=== PATIENT | female | born 1960 | race American Indian/Alaskan Native ===

== ENCOUNTER 2016-12-15 18:14 | Emergency (ER) | payer BC, MEDICARE ==
[2016-12-15 18:18] VITALS: BMI 37.8
[2016-12-15 18:26] VITALS: TEMP 98.6
[2016-12-15] MEDS ORDERED: Phenylephrine 0.5% Nasal Spray (15 ml) NS STA (18:56)
--- NOTE | 2016-12-15 18:59 | ED PDOC ---
Arrival/HPI - General Chief Complaint: ENT Problem Time Seen by Provider: 12/15/16 18:39 Historian: Patient - History of Present Illness Narrative History of Present Illness (Text): 12/15/16 18:56 A 56 year old female, whose past medical history includes borderline diabetes, asthma and PE in 2013 on Xarelto, presents to the emergency department complaining of a nose bleed in right naris that began at 17:30 today and resolved 10 minutes prior to arrival. Patient denies any fever, chills, nausea, vomiting, abdominal pain, hematouria, hematochezia, chest pain, shortness of breath, cough or any other complaints. Patient has a family history of blood clots. PMD: Dr. Small Time/Duration: Other (17:30 today) Symptom Course: Resolved (10 mins [employer]) Quality: Other Context: Other Past Medical History - Provider Review Nursing Documentation Reviewed: Yes - Infectious Disease Hx of Infectious Diseases: None - Tetanus Immunization Tetanus Immunization: Unknown - Cardiac Hx Hypertension: Yes - Pulmonary Hx Asthma: Yes Hx Pulmonary Embolism: Yes - Neurological Hx Headaches: Yes Hx Migraine: Yes - Endocrine/Metabolic Hx Endocrine Disorders: Yes (borderline DM) - Hematological/Oncological Hx Blood Disorders: Yes Other/Comment: Vitamin D deficiency - Musculoskeletal/Rheumatological Hx Musculoskeletal Disorders: Yes Hx Back Pain: Yes Hx Fractures: Yes Hx Herniated Disk: Yes (S1) Hx Unsteady Gait: No Other/Comment: fibromyalgia. calcified tendonitis hip. torus palatinus. left knee torn ACL - Gastrointestinal Hx Gastroesophageal Reflux: Yes - Genitourinary/Gynecological Hx Genitourinary Disorders: Yes Other/Comment: 3 miscarriages - Psychiatric Hx Substance Use: No - Surgical History Hx Appendectomy: Yes (2006) Hx Cholecystectomy: Yes (1991) Hx Hysterectomy: Yes (2005 Partial) Other/Comment: Left ACL repair. R knee arthroscopy - Anesthesia Hx Anesthesia: Yes Hx Anesthesia Reactions: No Hx Malignant Hyperthermia: No - Suicidal Assessment Feels Threatened In Home Enviroment: No Family/Social History - Physician Review Nursing Documentation Reviewed: Yes Family/Social History: Blood Clots Smoking Status: Never Smoked Hx Alcohol Use: No Hx Substance Use: No Hx Substance Use Treatment: No Allergies/Home Meds Allergies/Adverse Reactions: Allergies piperacillin [From Zosyn] Allergy (Verified 12/15/16 18:17) RASH tazobactam [From Zosyn] Allergy (Verified 12/15/16 18:17) RASH atorvastatin [From Lipitor] Adverse Reaction (Verified 12/15/16 18:17) PAIN muscle ache pravastatin [From Pravachol] Adverse Reaction (Verified 12/15/16 18:17) PAIN muscle pain rosuvastatin [From Crestor] Adverse Reaction (Verified 12/15/16 18:17) PAIN muscle pain Home Medications: Home Meds Medication Instructions Recorded Confirmed Metoprolol Succinate 25 mg PO DAILY 12/23/12 12/15/16 Ergocalciferol (Vitamin D2) 50,000 iu PO QWK 07/26/13 12/15/16 [Vitamin D] Tizanidine HCl [Tizanidine] 4 mg PO DAILY 04/13/14 12/15/16 Albuterol Sulfate [Proventil Hfa] 1 puff IH DAILY 12/15/16 12/15/16 Albuterol/Ipratropium [Duoneb 3 1 vial IH Q6H PRN 12/15/16 12/15/16 mg/0.5 mg (3 ml) UD] Desloratadine [Clarinex] 1 tab PO DAILY 12/15/16 12/15/16 Ezetimibe [Zetia] 1 tab PO DAILY 12/15/16 12/15/16 Fluticasone/Salmeterol 250/50 1 puff IH BID 12/15/16 12/15/16 [Advair Diskus 250/50] Gabapentin Enacarbil [Horizant] 1 cap PO BID 12/15/16 12/15/16 Hydrocodone Bitartrate [Zohydro ER] 1 cap PO BID 12/15/16 12/15/16 Lidocaine 5% [Lidoderm] 1 patch TOP DAILY 12/15/16 12/15/16 Montelukast [Singulair] 1 tab PO DAILY 12/15/16 12/15/16 Rivaroxaban [Xarelto] 1 tab PO DAILY 12/15/16 12/15/16 Review of Systems - Physician Review All systems were reviewed & negative as marked: Yes - Review of Systems Constitutional: absent: Fevers, Night Sweats ENT: Epistaxis (in right nare) Respiratory: absent: SOB, Cough Cardiovascular: absent: Chest Pain Gastrointestinal: absent: Abdominal Pain, Nausea, Vomiting, Hematochezia Genitourinary Female: absent: Hematuria Physical Exam Vital Signs Reviewed: Yes Vital Signs Temp Pulse Resp BP Pulse Ox 12/15/16 19:45 67 16 141/70 100 12/15/16 18:20 98.6 F 76 18 138/78 95 Temperature: Afebrile Blood Pressure: Normal Pulse: Regular Respiratory Rate: Normal Appearance: Positive for: Well-Appearing, Non-Toxic, Comfortable Pain Distress: None Mental Status: Positive for: Alert and Oriented X 3 - Systems Exam Head: Present: Atraumatic, Normocephalic Pupils: Present: PERRL Conjunctiva: Present: Normal Mouth: Present: Moist Mucous Membranes Pharnyx: No: ERYTHEMA, EXUDATE, TONSILS ENLARGED Nose (External): Present: Atraumatic Nose (Internal): Present: Normal Inspection, Other (There is some blood present in the right nare but no active bleeding) Neurological: Present: GCS=15, CN II-XII Intact, Speech Normal Skin: Present: Warm, Dry, Normal Color. No: Rashes Psychiatric: Present: Alert, Oriented x 3, Normal Insight, Normal Concentration Medical Decision Making ED Course and Treatment: 12/15/16 18:56 Impression: A 56 year old female with epistaxis in right naris, which resolved. Patient is maintained on xarelto for a history of PE. Plan: -- Labs -- Mendel-Synephrine nasal spray -- Reassess and disposition Progress Notes: 12/15/16 20:45 H/H and coags are stable and patient is well-appearing. Patient on initial exam with blood present but no active fresh hemorrhaging. Neosynephrine placed in the nares. Repeat exam showing near resolution of all blood. Given xarelto , discussed with Dr. Daigle, who said to hold the xarelto till she sees her early next week. - Lab Interpretations Lab Results: 12/15/16 19:00 Lab Results 12/15/16 19:00: PT 10.3, INR 0.95, APTT 27.7 12/15/16 19:00: WBC 9.1, RBC 4.12, Hgb 12.6, Hct 38.0, MCV 92.2, MCH 30.6, MCHC 33.2, RDW 14.9 H, Plt Count 376, MPV 9.1, Gran % 59.3, Lymph % (Auto) 33.6, [place] % (Auto) 5.6, Eos % (Auto) 1.2 L, Baso % (Auto) 0.3, Gran # 5.38, Lymph # 3.1, [place]well # 0.5, Eos # 0.1, Baso # 0.03 I have reviewed the lab results: Yes - Medication Orders Current Medication Orders: Discontinued Medications Phenylephrine HCl (Mendel-Synephrine 0.5% Nasal [place]) 1 ml NS STAT STA Stop: 12/15/16 18:57 Last Admin: 12/15/16 19:49 Dose: 1 ml Comments: Given by ED MD - Scribe Statement The provider has reviewed the documentation as recorded by the Perez Siu Provider Scribe Attestation: All medical record entries made by the Scribe were at my direction and personally dictated by me. I have reviewed the chart and agree that the record accurately reflects my personal performance of the history, physical exam, medical decision making, and the department course for this patient. I have also personally directed, reviewed, and agree with the discharge instructions and disposition. Disposition/Present on Arrival - Present on Arrival Any Indicators Present on Arrival: Yes History of DVT/PE: Yes History of Uncontrolled Diabetes: No Urinary Catheter: No History of Decub. Ulcer: No History Surgical Site Infection Following: None - Disposition Have Diagnosis and Disposition been Completed?: Yes Diagnosis: Epistaxis Disposition: HOME/ ROUTINE Disposition Time: 20:45 Patient Plan: Discharge Condition: GOOD Discharge Instructions (ExitCare): Nosebleed (ED) Additional Instructions: Hold the xarelto till you see Dr. Daigle early next week. Follow up with Dr. Ware, ENT if any recurrence of bleeding. Return to the emergency department if any new concerning symptoms. Referrals: Davion Small MD [Primary Care Provider] - Follow up with primary Galindo Daigle MD [Staff Provider] - Follow up with primary Joel Ware DO [Staff Provider] - Follow up with primary Forms: [employer] ([place])
[2016-12-15 19:25] LABS: BASO # 0.03 K/mm3 (0.0-2.0); BASO % 0.3 % (0.0-3.0); EOS # 0.1 (0.0-0.7); EOS % 1.2 % (1.5-5.0); GRAN # 5.38 (1.4-6.5); GRAN % 59.3 % (50.0-68.0); LYMPH # 3.1 (1.2-3.4); LYMPH % 33.6 % (22.0-35.0); MEAN CELL VOLUME 92.2 fl (80.0-105.0); MEAN CORPUSCULAR HEMOGLOBIN 30.6 pg (25.0-35.0); MEAN CORPUSCULAR HGB CONC 33.2 g/dl (31.0-37.0); MEAN PLATELET VOLUME 9.1 fl (7.0-11.0); MONO # 0.5 (0.1-0.6); MONO % 5.6 % (1.0-6.0); RED CELL DISTRIBUTION WIDTH 14.9 % (11.5-14.5); WHITE BLOOD COUNT 9.1 10^3/ul (4.5-11.0)
[2016-12-15 19:32] LABS: INR 0.95 (0.93-1.08); PARTIAL THROMBOPLASTIN TIME 27.7 Seconds (23.7-30.8)
[2016-12-15 19:45] VITALS: RESP 16
[2016-12-15 21:15] VITALS: BP 131/64; PULSE 77; O2SAT 96
== END 2016-12-15 21:16 | disposition home or self-care (01) ==
LOC: ED 18:14
DX: R04.0 Epistaxis (principal); I10 Essential (primary) hypertension; Z86.711 Personal history of pulmonary embolism; Z79.01 Long term (current) use of anticoagulants

== ENCOUNTER 2017-09-11 10:56 | Emergency (ER) | payer MEDICARE ==
[2017-09-11 10:58] VITALS: BMI 36.3
[2017-09-11 11:03] VITALS: TEMP 99
[2017-09-11] MEDS ORDERED: Sodium Chloride 0.9% 1,000 ML IV STA (11:13)
[2017-09-11] MEDS ORDERED: Oxycodone/Acetaminophen 5/325 mg Tab PO STA ×2 (11:15→14:39)
--- NOTE | 2017-09-11 11:19 | ED PDOC ---
Arrival/HPI - General Chief Complaint: Abdominal Pain Time Seen by Provider: 09/11/17 11:05 Historian: Patient, Spouse - History of Present Illness Narrative History of Present Illness (Text): you were treated in the ED today for hx of pulmonary embolism and on xeralto, having left sided flank pain with blood in urine but otherwise without any fall/ injury/neck pain/loss of consciousness/nausea/vomiting/headache/dizziness/ difficulty breathing/chest pain/abdomen pain/numbness/tingling/loss of limb or bowel or bladder function/pain with urination. Time/Duration: 24 hours Symptom Onset: Gradual Symptom Course: Unchanged Quality: Aching Severity Level: 6 Activities at Onset: Rest Context: Sitting Past Medical History - Provider Review Nursing Documentation Reviewed: Yes - Travel History Have you recently traveled outside [place] w/in the past 3 mons?: No - Infectious Disease Hx of Infectious Diseases: None - Tetanus Immunization Tetanus Immunization: Unknown - Reproductive Menopause: Yes - Cardiac Hx Hypertension: Yes - Pulmonary Hx Asthma: Yes Hx Pulmonary Embolism: Yes - Neurological Hx Headaches: Yes Hx Migraine: Yes - Endocrine/Metabolic Hx Endocrine Disorders: Yes (borderline DM) Hx Diabetes Mellitus Type 2: Yes - Hematological/Oncological Hx Blood Disorders: Yes Other/Comment: Vitamin D deficiency - Musculoskeletal/Rheumatological Hx Musculoskeletal Disorders: Yes Hx Back Pain: Yes Hx Fractures: Yes Hx Herniated Disk: Yes (S1) Hx Unsteady Gait: No Other/Comment: fibromyalgia. calcified tendonitis hip. torus palatinus. left knee torn ACL - Gastrointestinal Hx Gastroesophageal Reflux: Yes - Genitourinary/Gynecological Hx Genitourinary Disorders: Yes Other/Comment: 3 miscarriages - Psychiatric Hx Substance Use: No - Surgical History Hx Appendectomy: Yes (2006) Hx Cholecystectomy: Yes (1991) Hx Hysterectomy: Yes (2005 Partial) Other/Comment: Left ACL repair. R knee arthroscopy - Anesthesia Hx Anesthesia: Yes Hx Anesthesia Reactions: No Hx Malignant Hyperthermia: No - Suicidal Assessment Feels Threatened In Home Enviroment: No Family/Social History - Physician Review Nursing Documentation Reviewed: Yes Family/Social History: No Known Family HX Smoking Status: Never Smoked Hx Alcohol Use: No Hx Substance Use: No Hx Substance Use Treatment: No Allergies/Home Meds Allergies/Adverse Reactions: Allergies piperacillin [From Zosyn] Allergy (Verified 12/15/16 18:17) RASH tazobactam [From Zosyn] Allergy (Verified 12/15/16 18:17) RASH atorvastatin [From Lipitor] Adverse Reaction (Verified 12/15/16 18:17) PAIN muscle ache pravastatin [From Pravachol] Adverse Reaction (Verified 12/15/16 18:17) PAIN muscle pain rosuvastatin [From Crestor] Adverse Reaction (Verified 12/15/16 18:17) PAIN muscle pain Home Medications: Home Meds Medication Instructions Recorded Confirmed Metoprolol Succinate 25 mg PO DAILY 12/23/12 12/15/16 Ergocalciferol (Vitamin D2) 50,000 iu PO QWK 07/26/13 12/15/16 [Vitamin D] Tizanidine HCl [Tizanidine] 4 mg PO DAILY 04/13/14 12/15/16 Albuterol Sulfate [Proventil Hfa] 1 puff IH DAILY 12/15/16 12/15/16 Albuterol/Ipratropium [Duoneb 3 1 vial IH Q6H PRN 12/15/16 12/15/16 mg/0.5 mg (3 ml) UD] Desloratadine [Clarinex] 1 tab PO DAILY 12/15/16 12/15/16 Ezetimibe [Zetia] 1 tab PO DAILY 12/15/16 12/15/16 Fluticasone/Salmeterol 250/50 1 puff IH BID 12/15/16 12/15/16 [Advair Diskus 250/50] Gabapentin Enacarbil [Horizant] 1 cap PO BID 12/15/16 12/15/16 Hydrocodone Bitartrate [Zohydro ER] 1 cap PO BID 12/15/16 12/15/16 Lidocaine 5% [Lidoderm] 1 patch TOP DAILY 12/15/16 12/15/16 Montelukast [Singulair] 1 tab PO DAILY 12/15/16 12/15/16 Rivaroxaban [Xarelto] 1 tab PO DAILY 12/15/16 12/15/16 Review of Systems - Review of Systems Constitutional: Normal Eyes: Normal ENT: Normal Respiratory: Normal Cardiovascular: Normal Gastrointestinal: Normal Genitourinary Female: Hematuria Musculoskeletal: Normal Skin: Normal Neurological: Normal Endocrine: Normal Hemo/Lymphatic: Normal Psychiatric: Normal Physical Exam Vital Signs Reviewed: Yes Vital Signs Temp Pulse Resp BP Pulse Ox 05/26/18 14:00 71 18 128/69 98 09/11/17 12:08 79 18 131/71 98 09/11/17 10:56 99 F 82 18 135/79 96 Temperature: Afebrile Blood Pressure: Hypertensive Pulse: Regular Respiratory Rate: Normal Appearance: Positive for: Well-Appearing, Non-Toxic, Comfortable Pain Distress: None Mental Status: Positive for: Alert and Oriented X 3 - Systems Exam Head: Present: Atraumatic, Normocephalic Pupils: Present: PERRL Extroacular Muscles: Present: EOMI Conjunctiva: Present: Normal Ears: Present: Normal Mouth: Present: Moist Mucous Membranes Pharnyx: Present: Normal Nose (External): Present: Atraumatic Nose (Internal): Present: Normal Inspection Neck: Present: Normal Range of Motion Respiratory/Chest: Present: Clear to Auscultation, Good Air Exchange Cardiovascular: Present: Regular Rate and Rhythm Abdomen: No: Tenderness, Distention, Normal Bowel Sounds, Peritoneal Signs, Rebound, Guarding, McBurney's Point Tender, Rovsing's Sign Present, Hernias, Feeding Tubes, Ostomy Tubes, Mass/Organomegaly, Scars, Other Back: Present: CVA Tenderness, Other (left lower cva discomfort but no c-t-l spinal tenderness. no erythema/fluctuancec/crepitus.) Upper Extremity: Present: Normal Inspection Lower Extremity: Present: Normal Inspection Neurological: Present: GCS=15, CN II-XII Intact, Speech Normal, Motor Func Grossly Intact Skin: Present: Warm, Normal Color Psychiatric: Present: Alert, Oriented x 3, Normal Insight, Normal Concentration Medical Decision Making ED Course and Treatment: you were treated in the ED today for hx of pulmonary embolism and on xeralto, having left sided flank pain with blood in urine but otherwise without any fall/ injury/neck pain/loss of consciousness/nausea/vomiting/headache/dizziness/ difficulty breathing/chest pain/abdomen pain/numbness/tingling/loss of limb or bowel or bladder function/pain with urination. You were otherwise breathing easily, smiling and talking easily with your , good strength/sensation, walking easily, clear lungs, no abdomen tenderness, mild left lower back pain but no spinal tenderness and without redness, no fever temp 99, stable heart rate 82, stable breathing rate 18, excellent oxygen level 96% room air, elevated blood pressure 135/79 which we recommend repeat in 2-3 days primary care office to determine further treatment, you have blood tests no infection count 9, stable blood level hemoglobin 13/platelets 380, stable chemistry, lipase normal 71, urine test trace leukocytes, ct abdomen/pelvis radiology There is a small approximately 4 mm obstructing calculus left UPJ region with mild dilatation of the ureter proximal to this as well as left renal pelvis. Mild infiltration changes in the left perinephric fat, saline, percocet, zofran , macrobid, flomax, observation done in the ED with improvement, counselled to drink lots of fluids and thus discharged home with . 1. Recommend macrobid as directed for urine infection control. recommend flomax for kidney stone passage. recommend zofran as directed for nausea. 2. Recommend tylenol as directed for mild pain, motrin as directed for moderate pain, and percocet as directed for breakthrough pain and don't work/drive/drink alcohol when using. 3. Recommend follow-up primary care 2-3 days to review symptoms, referral to urology to review your symptoms/urine in blood/protein/renal stone/urinary bladder wall thickening to ensure no complications/cancer development/further care, referral to endocrine clinic for blood sugar control as mildly elevated 141, referral to gastroenterology clinic for mildly elevated liver test AST 38/ esophagitis to ensure no complications/cancer development, referral to surgery for hiatal hernia/umbilical hernia/wall changes along the base of the appendix to ensure no complications/cancer development, referral to pulmonary for lung scarring to ensure no complications/cancer development. 4. If any worsening pain , fever, chills, nausea, vomiting, difficulty breathing, numbness, loss of limb function, pain with urination or any medical condition then return to the ED. 09/11/17 14:27 PROCEDURE: CT abdomen pelvis Batch Unloader : Spencer Wright MD HISTORY:57 yo F, with left sided flank pain w hematuria COMPARISON:No prior study available for comparison however correlation made with prior ultrasound of the abdomen 02/10/2013. Correlation also made with CTA chest dated 06/12/2012 which partially image the upper abdomen the. FINDINGS: LOWER THORAX: Minor bibasilar atelectasis with small of local area of linear scarring in the left lingular area as well. No evidence of effusion or basilar pneumothorax. Heart heart size upper limits of normal. No pericardial effusion. There is a tiny hiatal hernia with slight wall thickening of distal esophagus likely due to protrusion of gastric mucosa. Possibility of esophagitis not excluded. LIVER:The liver is enlarged particularly the left lobe. Moderate fatty hepatic infiltration. . None there appears to be a small metallic clip along the undersurface of the right lobe liver likely fallen into this location from prior cholecystectomy surgery. GALLBLADDER AND BILE DUCTS:Cholecystectomy. . PANCREAS:Unremarkable. No mass. No ductal dilatation. SPLEEN:Unremarkable. No splenomegaly. ADRENALS:Unremarkable. KIDNEYS AND URETERS: There is an approximately 4.1 mm elliptical shaped calcification seen in the. The left UPJ region with mild dilatation of the proximal right ureter and left renal pelvis. The left kidney is slightly larger than the right kidney and there are infiltration changes seen in the perinephric fat. BLADDER:Urinary bladder is incompletely distended which may in part account for slight thick-walled appearance. Rule out cystitis or other intrinsic/invasive wall lesion. Correlation with urinalysis recommended. REPRODUCTIVE:Unremarkable as visualized APPENDIX:Apparent post appendectomy changes with small densities (probable suture material) along wall at the level of the base of the appendix. BOWEL: Evaluation of the bowel is limited due to the lack of oral contrast material. The stomach is incompletely distended which in part accounts for thick-walled appearance. Visualized loops of small bowel exhibit normal contour and caliber. No evidence of acute mechanical small bowel obstruction. Stool and air seen throughout the large bowel. No definitive evidence of mural wall thickening. There may also be a few scattered colonic diverticula. PERITONEUM:Unremarkable. No fluid collection. No free air. Small fat containing umbilical hernia. LYMPH NODES:Unremarkable. No enlarged lymph nodes. VASCULATURE:Unremarkable. No aortic aneurysm. BONES:Mild multilevel degenerative spondylosis of the visualized lower thoracic and to a lesser degree lumbar spine. OTHER FINDINGS:None. IMPRESSION: There is a small approximately 4 mm obstructing calculus left UPJ region with mild dilatation of the ureter proximal to this as well as left renal pelvis. Mild infiltration changes in the left perinephric fat Incomplete urinary bladder distention which presumably accounts for thick- walled appearance. Correlation with urinalysis to exclude cystitis versus other intrinsic/ invasive wall lesion. Changes of cholecystectomy and appendectomy. Hepatomegaly with moderate fatty hepatic infiltration. . Clinical correlation recommended. Few scattered colonic diverticula. No radiographic evidence of acute diverticulitis. 09/11/17 14:42 Reassessment Condition: Re-examined, Improved - Lab Interpretations Lab Results: 09/11/17 11:30 09/11/17 11:30 Lab Results 09/11/17 11:30: Urine Color Dark yellow, Urine Appearance Cloudy, Urine pH 6.0, Ur Specific [place] 1.025, Urine Protein 100 H, Urine Glucose (UA) Negative, Urine Ketones Negative, Urine Blood Large H, Urine Nitrate Negative, Urine Bilirubin Negative, Urine Urobilinogen 0.2, Ur Leukocyte Esterase Trace H, Urine RBC Tntc, Urine WBC 5 - 10, Ur Epithelial Cells 1 - 3 09/11/17 11:30: Sodium 144, Potassium 3.9, Chloride 105, Carbon Dioxide 24, Anion Gap 19, BUN 12, Creatinine 0.7, Est GFR ( Amer) > 60, Est GFR (Non- Af Amer) > 60, Random Glucose 141 H, Calcium 9.9, Magnesium 1.7, Total Bilirubin 0.3, AST 38 H, ALT 37, Alkaline Phosphatase 80, Total Protein 7.9, Albumin 4.6, Globulin 3.3, Albumin/Globulin Ratio 1.4, Lipase 71 09/11/17 11:30: PT 14.7 H, INR 1.27 H, APTT 33.8 09/11/17 11:30: WBC 9.2, RBC 4.37, Hgb 13.0, Hct 39.1, MCV 89.5, MCH 29.7, MCHC 33.2, RDW 14.6 H, Plt Count 380, MPV 9.5, Gran % 67.1, Lymph % (Auto) 26.8, [place] % (Auto) 5.0, Eos % (Auto) 0.8 L, Baso % (Auto) 0.3, Gran # 6.19, Lymph # ( Auto) 2.5, [place] # (Auto) 0.5, Eos # (Auto) 0.1, Baso # (Auto) 0.03 I have reviewed the lab results: Yes - RAD Interpretation Radiology Orders: 09/11/17 11:13 ABD & PELVIS W/O PO OR IV CONT [CT] Stat - Medication Orders Current Medication Orders: Nitrofurantoin Macrocrystals (Macrobid) 100 mg PO STAT STA PRN Reason: Protocol Stop: 09/11/17 14:39 Oxycodone/Acetaminophen (Percocet 5/325 Mg Tab) 1 tab PO STAT STA Stop: 09/11/17 14:40 Tamsulosin HCl (Flomax) 0.4 mg PO STAT STA Stop: 09/11/17 14:39 Discontinued Medications Sodium Chloride (Sodium Chloride 0.9%) 1,000 mls @ 1,000 mls/hr IV .Q1H STA Stop: 09/11/17 12:12 Last Admin: 09/11/17 11:30 Dose: 1,000 mls/hr eMAR Start Stop Document 09/11/17 11:30 MAC (Rec: 09/11/17 11:32 MAC [id number]) Intravenous Solution Start Date 09/11/17 Start Time 11:30 End Date 09/11/17 End time 12:30 Total Infusion Time 60 Ondansetron HCl (Zofran Inj) 4 mg IVP STAT STA Stop: 09/11/17 11:14 Last Admin: 09/11/17 11:33 Dose: 4 mg IVP Administration Document 09/11/17 11:33 MAC (Rec: 09/11/17 11:33 MAC [id number]) Charges for Administration # of IVP Administrations 1 Ondansetron HCl (Zofran Odt) 4 mg PO STAT STA Stop: 09/11/17 14:40 Oxycodone/Acetaminophen (Percocet 5/325 Mg Tab) 1 tab PO STAT STA Stop: 09/11/17 11:16 Last Admin: 09/11/17 11:33 Dose: 1 tab MAR Pain Assessment Document 09/11/17 11:33 MAC (Rec: 09/11/17 11:34 MAC [id number]) Pain Reassessment Is this a pain reassessment? Yes Sleep Is patient sleeping during reassessment? No Presence of Pain Presence of Pain Yes Location Left, Right or Bilateral Left Upper or Lower Lower Pain Location Body Site Back Description Description Sharp Intensity of Pain at present 6 - Scribe Statement The provider has reviewed the documentation as recorded by the Pjibjesse Blum Provider Scribe Attestation: All medical record entries made by the Pjibjesse were at my direction and personally dictated by me. I have reviewed the chart and agree that the record accurately reflects my personal performance of the history, physical exam, medical decision making, and the department course for this patient. I have also personally directed, reviewed, and agree with the discharge instructions and disposition. Disposition/Present on Arrival - Present on Arrival Any Indicators Present on Arrival: No History of DVT/PE: Yes History of Uncontrolled Diabetes: No Urinary Catheter: No History of Decub. Ulcer: No History Surgical Site Infection Following: None - Disposition Have Diagnosis and Disposition been Completed?: Yes Diagnosis: Renal stone Disposition: HOME/ ROUTINE Disposition Time: 14:50 Patient Plan: Discharge Condition: IMPROVED Discharge Instructions (ExitCare): Kidney Stones (DC) Additional Instructions: you were treated in the ED today for hx of pulmonary embolism and on xeralto, having left sided flank pain with blood in urine but otherwise without any fall/ injury/neck pain/loss of consciousness/nausea/vomiting/headache/dizziness/ difficulty breathing/chest pain/abdomen pain/numbness/tingling/loss of limb or bowel or bladder function/pain with urination. You were otherwise breathing easily, smiling and talking easily with your , good strength/sensation, walking easily, clear lungs, no abdomen tenderness, mild left lower back pain but no spinal tenderness and without redness, no fever temp 99, stable heart rate 82, stable breathing rate 18, excellent oxygen level 96% room air, elevated blood pressure 135/79 which we recommend repeat in 2-3 days primary care office to determine further treatment, you have blood tests no infection count 9, stable blood level hemoglobin 13/platelets 380, stable chemistry, lipase normal 71, urine test trace leukocytes, ct abdomen/pelvis radiology There is a small approximately 4 mm obstructing calculus left UPJ region with mild dilatation of the ureter proximal to this as well as left renal pelvis. Mild infiltration changes in the left perinephric fat, saline, percocet, zofran , macrobid, flomax, observation done in the ED with improvement, counselled to drink lots of fluids and thus discharged home with . 1. Recommend macrobid as directed for urine infection control. recommend flomax for kidney stone passage. recommend zofran as directed for nausea. 2. Recommend tylenol as directed for mild pain, motrin as directed for moderate pain, and percocet as directed for breakthrough pain and don't work/drive/drink alcohol when using. 3. Recommend follow-up primary care 2-3 days to review symptoms, referral to urology to review your symptoms/urine in blood/protein/renal stone/urinary bladder wall thickening to ensure no complications/cancer development/further care, referral to endocrine clinic for blood sugar control as mildly elevated 141, referral to gastroenterology clinic for mildly elevated liver test AST 38/ esophagitis to ensure no complications/cancer development, referral to surgery for hiatal hernia/umbilical hernia/wall changes along the base of the appendix to ensure no complications/cancer development, referral to pulmonary for lung scarring to ensure no complications/cancer development. 4. If any worsening pain , fever, chills, nausea, vomiting, difficulty breathing, numbness, loss of limb function, pain with urination or any medical condition then return to the ED. Prescriptions: Nitrofurantoin Macrocrystals [Macrobid] 100 mg PO Q12 7 Days #14 cap oxyCODONE/Acetaminophen [Percocet 5/325 mg Tab] 1 ea PO Q8 PRN 3 Days #9 tab PRN Reason: breakthrough pain Tamsulosin HCl [Flomax] 0.4 mg PO DAILY 30 Days #30 cap.er.24h Referrals: Davion Small MD [Primary Care Provider] - Follow up with primary Forms: [facility] ([place]), WORK NOTE
[2017-09-11 11:48] LABS: BASO # 0.03 K/mm3 (0.0-2.0); BASO % 0.3 % (0.0-3.0); EOS # 0.1 (0.0-0.7); EOS % 0.8 % (1.5-5.0); GRAN # 6.19 (1.4-6.5); GRAN % 67.1 % (50.0-68.0); LYMPH # 2.5 (1.2-3.4); LYMPH % 26.8 % (22.0-35.0); MEAN CELL VOLUME 89.5 fl (80.0-105.0); MEAN CORPUSCULAR HEMOGLOBIN 29.7 pg (25.0-35.0); MEAN CORPUSCULAR HGB CONC 33.2 g/dl (31.0-37.0); MEAN PLATELET VOLUME 9.5 fl (7.0-11.0); MONO # 0.5 (0.1-0.6); RBC 4.37 10^6/uL (3.5-6.1); RED CELL DISTRIBUTION WIDTH 14.6 % (11.5-14.5); WHITE BLOOD COUNT 9.2 10^3/ul (4.5-11.0)
[2017-09-11 11:51] LABS: URINE BILIRUBIN NEGATIVE (NEGATIVE); URINE BLOOD LARGE (NEGATIVE); URINE GLUCOSE (UA) NEGATIVE (NEGATIVE); URINE LEUKOCYTE ESTERASE TRACE Leu/uL (NEGATIVE); URINE PROTEIN 100 mg/dL (<30 mg/dL); URINE UROBILINOGEN 0.2 E.U./dL (<1 E.U./dL)
[2017-09-11 11:52] LABS: URINE APPEARANCE CLOUDY (CLEAR); URINE COLOR DARK YELLOW (YELLOW)
[2017-09-11 11:58] LABS: INR 1.27 (0.93-1.08); PARTIAL THROMBOPLASTIN TIME 33.8 Seconds (25.1-36.5); PROTHROMBIN TIME 14.7 SECONDS (9.4-12.5)
[2017-09-11 12:00] LABS: ALB/GLOB RATIO 1.4 (1.1-1.8); ALBUMIN 4.6 g/dL (3.0-4.8); ALT/SGPT 37 U/L (7-56); AST/SGOT 38 U/L (14-36); BLOOD UREA NITROGEN 12 mg/dL (7-21); CALCIUM 9.9 mg/dL (8.4-10.5); GFR AFRICAN-AMERICAN > 60; GFR NON-AFRICAN AMERICAN > 60; LIPASE 71 U/L (23-300)
[2017-09-11 12:09] VITALS: O2SAT 98
[2017-09-11 12:18] LABS: URINE RBC TNTC /hpf (0-2)
[2017-09-11 14:11] VITALS: BP 128/69; PULSE 71
--- NOTE | 2017-09-11 14:23 | CT ---
PROCEDURE: CT abdomen pelvis dated 09/11/2017 HISTORY: 57 yo F, with left sided flank pain w hematuria COMPARISON: No prior study available for comparison however correlation made with prior ultrasound of the abdomen 02/10/2013. Correlation also made with CTA chest dated 06/12/2012 which partially image the upper abdomen the. TECHNIQUE: Contiguous axial images of the abdomen and pelvis. Oral contrast was administered. No IV contrast given. Coronal and Sagittal reformats generated. Radiation dose: Total exam DLP = mGy-cm. This CT exam was performed using one or more of the following dose reduction techniques: Automated exposure control, adjustment of the mA and/or kV according to patient size, and/or use of iterative reconstruction technique. Total exam DLP = mGy-cm. This CT exam was performed using one or more of the following dose reduction techniques: Automated exposure control, adjustment of the mA and/or kV according to patient size, and/or use of iterative reconstruction technique. . FINDINGS: LOWER THORAX: Minor bibasilar atelectasis with small of local area of linear scarring in the left lingular area as well. No evidence of effusion or basilar pneumothorax. Heart heart size upper limits of normal. No pericardial effusion. There is a tiny hiatal hernia with slight wall thickening of distal esophagus likely due to protrusion of gastric mucosa. Possibility of esophagitis not excluded. LIVER: The liver is enlarged particularly the left lobe. Moderate fatty hepatic infiltration. . None there appears to be a small metallic clip along the undersurface of the right lobe liver likely fallen into this location from prior cholecystectomy surgery. GALLBLADDER AND BILE DUCTS: Cholecystectomy. . PANCREAS: Unremarkable. No mass. No ductal dilatation. SPLEEN: Unremarkable. No splenomegaly. ADRENALS: Unremarkable. KIDNEYS AND URETERS: There is an approximately 4.1 mm elliptical shaped calcification seen in the. The left UPJ region with mild dilatation of the proximal right ureter and left renal pelvis. The left kidney is slightly larger than the right kidney and there are infiltration changes seen in the perinephric fat. BLADDER: Urinary bladder is incompletely distended which may in part account for slight thick-walled appearance. Rule out cystitis or other intrinsic/invasive wall lesion. . Correlation with urinalysis recommended. REPRODUCTIVE: Unremarkable as visualized APPENDIX: Apparent post appendectomy changes with small densities (probable suture material) along wall at the level of the base of the appendix. BOWEL: Evaluation of the bowel is limited due to the lack of oral contrast material. The stomach is incompletely distended which in part accounts for thick-walled appearance. Visualized loops of small bowel exhibit normal contour and caliber. No evidence of acute mechanical small bowel obstruction. Stool and air seen throughout the large bowel. No definitive evidence of mural wall thickening. There may also be a few scattered colonic diverticula. PERITONEUM: Unremarkable. No fluid collection. No free air. Small fat containing umbilical hernia. LYMPH NODES: Unremarkable. No enlarged lymph nodes. VASCULATURE: Unremarkable. No aortic aneurysm. BONES: Mild multilevel degenerative spondylosis of the visualized lower thoracic and to a lesser degree lumbar spine. OTHER FINDINGS: None. IMPRESSION: There is a small approximately 4 mm obstructing calculus left UPJ region with mild dilatation of the ureter proximal to this as well as left renal pelvis. Mild infiltration changes in the left perinephric fat Incomplete urinary bladder distention which presumably accounts for thick-walled appearance. Correlation with urinalysis to exclude cystitis versus other intrinsic/ invasive wall lesion. Changes of cholecystectomy and appendectomy. Hepatomegaly with moderate fatty hepatic infiltration. . Clinical correlation recommended. Few scattered colonic diverticula. No radiographic evidence of acute diverticulitis.
[2017-09-11 15:09] VITALS: RESP 16
== END 2017-09-11 15:15 | disposition home or self-care (01) ==
LOC: ED 10:56
DX: N20.0 Calculus of kidney (principal); I10 Essential (primary) hypertension; E11.9 Type 2 diabetes mellitus without complications; M79.7 Fibromyalgia
CPT/HCPCS: 74176; 80053; 81001; 83690; 83735; 85025; 85610; 85730; 87086; 96361; 96374; 99284; J2405; J7040

== ENCOUNTER 2017-09-13 21:21 | Observation (INO) | payer MEDICARE ==
[2017-09-13 21:21] VITALS: BMI 36.3
--- NOTE | 2017-09-13 21:55 | ED PDOC ---
Arrival/HPI - General Chief Complaint: Abdominal Pain Time Seen by Provider: 09/13/17 21:28 Historian: Patient - History of Present Illness Narrative History of Present Illness (Text): 09/13/17 21:54 Moon Lawrence is a 57 year old, whose past medical history includes renal stones, asthma, diabetes, GERD, PE, and migraines, who presents to the Emergency department for left flank pain. Patient was initially seen in the Emergency department on 09/11/2017 for left-sided flank pain and hematuria and had a CT Abdomen/Pelvis performed, which showed small approximately 4 mm obstructing calculus left UPJ region with mild dilatation of the ureter proximal to this as well as left renal pelvis. Patient was discharged home on Macrobid, Percocet, and Flomax with urology follow-up. Patient states she still experiencing persistent left-sided flank pain and denies any significant relief after taking medication. Patient denies any fever, chills, chest pain, shortness of breath, nausea, vomiting, diarrhea, neck pain, headache, dizziness , or any other complaints. PMD: Dr. Zita Small Symptom Onset: Gradual Symptom Course: Unchanged Activities at Onset: Light Context: Home Past Medical History - Provider Review Nursing Documentation Reviewed: Yes - Infectious Disease Hx of Infectious Diseases: None - Tetanus Immunization Tetanus Immunization: Unknown - Cardiac Hx Cardiac Disorders: Yes Hx Hypertension: Yes - Pulmonary Hx Respiratory Disorders: Yes Hx Asthma: Yes Hx Pulmonary Embolism: Yes - Neurological Hx Neurological Disorder: Yes Hx Headaches: Yes Hx Migraine: Yes - HEENT Hx HEENT Disorder: No - Renal Hx Renal Disorder: No - Endocrine/Metabolic Hx Endocrine Disorders: Yes (borderline DM) Hx Diabetes Mellitus Type 2: Yes - Hematological/Oncological Hx Blood Disorders: Yes Other/Comment: Vitamin D deficiency - Integumentary Hx Dermatological Disorder: No - Musculoskeletal/Rheumatological Hx Musculoskeletal Disorders: Yes Hx Back Pain: Yes Hx Fractures: Yes Hx Herniated Disk: Yes (S1) Hx Unsteady Gait: No Other/Comment: fibromyalgia. calcified tendonitis hip. torus palatinus. left knee torn ACL - Gastrointestinal Hx Gastrointestinal Disorders: Yes Hx Gastroesophageal Reflux: Yes - Genitourinary/Gynecological Hx Genitourinary Disorders: Yes Other/Comment: 3 miscarriages - Psychiatric Hx Psychophysiologic Disorder: No Hx Substance Use: No - Surgical History Hx Appendectomy: Yes (2006) Hx Cholecystectomy: Yes (1991) Hx Hysterectomy: Yes (2005 Partial) Other/Comment: Left ACL repair. R knee arthroscopy - Anesthesia Hx Anesthesia: Yes Hx Anesthesia Reactions: No Hx Malignant Hyperthermia: No - Suicidal Assessment Feels Threatened In Home Enviroment: No Family/Social History - Physician Review Nursing Documentation Reviewed: Yes Family/Social History: Unknown Family HX Smoking Status: Never Smoked Hx Alcohol Use: No Hx Substance Use: No Hx Substance Use Treatment: No Allergies/Home Meds Allergies/Adverse Reactions: Allergies piperacillin [From Zosyn] Allergy (Verified 09/13/17 21:30) RASH tazobactam [From Zosyn] Allergy (Verified 09/13/17 21:30) RASH atorvastatin [From Lipitor] Adverse Reaction (Verified 09/13/17 21:30) PAIN muscle ache pravastatin [From Pravachol] Adverse Reaction (Verified 09/13/17 21:30) PAIN muscle pain rosuvastatin [From Crestor] Adverse Reaction (Verified 09/13/17 21:30) PAIN muscle pain Home Medications: Home Meds Medication Instructions Recorded Confirmed Metoprolol Succinate 25 mg PO DAILY 12/23/12 09/13/17 Ergocalciferol (Vitamin D2) 50,000 iu PO QWK 07/26/13 09/13/17 [Vitamin D] Tizanidine HCl [Tizanidine] 4 mg PO DAILY 04/13/14 09/13/17 Albuterol Sulfate [Proventil Hfa] 1 puff IH DAILY 12/15/16 09/13/17 Albuterol/Ipratropium [Duoneb 3 1 vial IH Q6H PRN 12/15/16 09/13/17 mg/0.5 mg (3 ml) UD] Desloratadine [Clarinex] 1 tab PO DAILY 12/15/16 09/13/17 Ezetimibe [Zetia] 1 tab PO DAILY 12/15/16 09/13/17 Fluticasone/Salmeterol 250/50 1 puff IH BID 12/15/16 09/13/17 [Advair Diskus 250/50] Gabapentin Enacarbil [Horizant] 1 cap PO BID 12/15/16 09/13/17 Hydrocodone Bitartrate [Zohydro ER] 1 cap PO BID 12/15/16 09/13/17 Lidocaine 5% [Lidoderm] 1 patch TOP DAILY 12/15/16 09/13/17 Montelukast [Singulair] 1 tab PO DAILY 12/15/16 09/13/17 Rivaroxaban [Xarelto] 1 tab PO DAILY 12/15/16 09/13/17 Review of Systems - Physician Review All systems were reviewed & negative as marked: Yes - Review of Systems Constitutional: Normal. absent: Fevers Eyes: Normal ENT: Normal Respiratory: Normal. absent: SOB, Cough Cardiovascular: Normal. absent: Chest Pain Gastrointestinal: Abdominal Pain. absent: Diarrhea, Nausea, Vomiting Musculoskeletal: Back Pain. absent: Neck Pain Skin: Normal. absent: Rash Neurological: Normal. absent: Headache, Dizziness Endocrine: Normal Hemo/Lymphatic: Normal Psychiatric: Normal Physical Exam Vital Signs Reviewed: Yes Vital Signs Temp Pulse Resp BP Pulse Ox 09/13/17 21:32 99.2 F 64 17 150/83 97 Temperature: Afebrile Blood Pressure: Normal Pulse: Regular Respiratory Rate: Normal Appearance: Positive for: Well-Appearing, Non-Toxic, Comfortable Pain Distress: None Mental Status: Positive for: Alert and Oriented X 3 - Systems Exam Head: Present: Atraumatic, Normocephalic Pupils: Present: PERRL Extroacular Muscles: Present: EOMI Conjunctiva: Present: Normal Mouth: Present: Moist Mucous Membranes Neck: Present: Normal Range of Motion Respiratory/Chest: Present: Clear to Auscultation, Good Air Exchange. No: Respiratory Distress, Accessory Muscle Use Cardiovascular: Present: Regular Rate and Rhythm, Normal S1, S2. No: Murmurs Abdomen: No: Tenderness, Distention, Peritoneal Signs Back: Present: CVA Tenderness (Left CVA tenderness) Upper Extremity: Present: Normal Inspection. No: Cyanosis, Edema Lower Extremity: Present: Normal Inspection. No: Edema Neurological: Present: GCS=15, CN II-XII Intact, Speech Normal Skin: Present: Warm, Dry, Normal Color. No: Rashes Psychiatric: Present: Alert, Oriented x 3, Normal Insight, Normal Concentration Medical Decision Making ED Course and Treatment: 09/13/17 21:55 Impression: 57 year old female complaining of persistent left-sided flank pain. Differential Diagnosis included but are not limited to: renal colic Plan: -- Labs -- Urinalysis -- IV fluids -- Zofran -- Dilaudid -- Reassess and disposition Prior Visits: Notes and results from previous visits were reviewed. On 09/11/2017, pt was seen in the Emergency department for left-sided flank pain and hematuria. CT Abdomen and Pelvis performed showed: There is a small approximately 4 mm obstructing calculus left UPJ region with mild dilatation of the ureter proximal to this as well as left renal pelvis. Mild infiltration changes in the left perinephric fat. Incomplete urinary bladder distention which presumably accounts for thick-walled appearance. Correlation with urinalysis to exclude cystitis versus other intrinsic/ invasive wall lesion. Changes of cholecystectomy and appendectomy. Hepatomegaly with moderate fatty hepatic infiltration. . Clinical correlation recommended. Few scattered colonic diverticula. No radiographic evidence of acute diverticulitis. Pt was d/c home Macrobid, Percocet, and Flomax. Progress Notes: 09/14/17 00:07 Case discussed with certified medical asst pipeline construction inspector, who is aware and agrees with plan. 09/14/17 00:[address] Farfan, who is aware and agrees with plan. Accepts pt in to hospitalist service. Pt will go to [facility] observation for renal colic. - Lab Interpretations Lab Results: 09/13/17 22:06 09/13/17 22:06 Lab Results 09/13/17 22:06: WBC 8.0, RBC 4.22, Hgb 12.6, Hct 38.4, MCV 91.0, MCH 29.9, MCHC 32.8, RDW 15.0 H, Plt Count 362, MPV 9.5 09/13/17 22:06: Sodium 145, Potassium 4.0, Chloride 100, Carbon Dioxide 31, Anion Gap 18, BUN 12, Creatinine 0.8, Est GFR ( Amer) > 60, Est GFR (Non- Af Amer) > 60, Random Glucose 126 H, Calcium 9.7, Total Bilirubin 0.2, AST 37 H , ALT 39, Alkaline Phosphatase 79, Total Protein 7.9, Albumin 4.4, Globulin 3.4 , Albumin/Globulin Ratio 1.3 09/13/17 22:06: Urine Color Yellow, Urine Appearance Cloudy, Urine pH 6.0, Ur Specific [place] >= 1.030, Urine Protein 100 H, Urine Glucose (UA) Negative, Urine Ketones Trace H, Urine Blood Large H, Urine Nitrate Negative, Urine Bilirubin Negative, Urine Urobilinogen 0.2, Ur Leukocyte Esterase Negative, Urine RBC Tntc, Urine WBC 1 - 3, Ur Epithelial Cells 4 - 5, Urine Bacteria Small I have reviewed the lab results: Yes - Medication Orders Current Medication Orders: Discontinued Medications Hydromorphone HCl (Dilaudid) 1 mg IVP STAT STA Stop: 09/13/17 22:00 Last Admin: 09/13/17 22:13 Dose: 1 mg MAR Pain Assessment Document 09/13/17 22:13 SS (Rec: 09/13/17 22:15 [id number] Pain Reassessment Is this a pain reassessment? No Sleep Is patient sleeping during reassessment? No Presence of Pain Presence of Pain Yes Pain Scale Used Pain Scale Used Numeric Location Left, Right or Bilateral Left Description Description Constant Pain Behavior Moaning Crying Restlessness IVP Administration Document 09/13/17 22:13 SS (Rec: 09/13/17 22:15 [id number]) Charges for Administration # of IVP Administrations 1 Sodium Chloride (Sodium Chloride 0.9%) 1,000 mls @ 999 mls/hr IV .Q1H1M STA Stop: 09/13/17 23:00 Last Admin: 09/13/17 22:15 Dose: 999 mls/hr eMAR Start Stop Document 09/13/17 22:15 SS (Rec: 09/13/17 22:15 [id number]) Intravenous Solution Start Date 09/13/17 Start Time 22:15 End Date 09/13/17 End time 23:15 Total Infusion Time 60 Ondansetron HCl (Zofran Inj) 4 mg IVP ONCE ONE Stop: 09/13/17 22:00 Last Admin: 09/13/17 22:15 Dose: 4 mg IVP Administration Document 09/13/17 22:15 SS (Rec: 09/13/17 22:15 [id number] Charges for Administration # of IVP Administrations 1 - Scribe Statement The provider has reviewed the documentation as recorded by the Pjibjesse Henderson Provider Scribe Attestation: All medical record entries made by the Scribe were at my direction and personally dictated by me. I have reviewed the chart and agree that the record accurately reflects my personal performance of the history, physical exam, medical decision making, and the department course for this patient. I have also personally directed, reviewed, and agree with the discharge instructions and disposition. Disposition/Present on Arrival - Present on Arrival Any Indicators Present on Arrival: No History of DVT/PE: Yes History of Uncontrolled Diabetes: No Urinary Catheter: No History of Decub. Ulcer: No History Surgical Site Infection Following: None - Disposition Have Diagnosis and Disposition been Completed?: Yes Diagnosis: Renal colic, Intractable pain Disposition: HOSPITALIZED Disposition Time: 00:21 Condition: STABLE Referrals: Davion Small MD [Primary Care Provider] - Follow up with primary Forms: [facility] (Greenlandic)
[2017-09-13] MEDS ORDERED: HYDROmorphone 1 mg/ml ISec IVP STA (21:59)
[2017-09-13] MEDS ORDERED: Sodium Chloride 0.9% 1,000 ML IV STA (22:00)
[2017-09-13 22:18] LABS: URINE BILIRUBIN NEGATIVE (NEGATIVE); URINE BLOOD LARGE (NEGATIVE); URINE GLUCOSE (UA) NEGATIVE (NEGATIVE); URINE LEUKOCYTE ESTERASE NEGATIVE Leu/uL (NEGATIVE); URINE PROTEIN 100 mg/dL (<30 mg/dL); URINE UROBILINOGEN 0.2 E.U./dL (<1 E.U./dL)
[2017-09-13 22:19] LABS: URINE APPEARANCE CLOUDY (CLEAR); URINE COLOR YELLOW (YELLOW)
[2017-09-13 22:26] LABS: HEMOGLOBIN 12.6 g/dL (12.0-16.0); MEAN CORPUSCULAR HEMOGLOBIN 29.9 pg (25.0-35.0); MEAN CORPUSCULAR HGB CONC 32.8 g/dl (31.0-37.0); MEAN PLATELET VOLUME 9.5 fl (7.0-11.0); RBC 4.22 10^6/uL (3.5-6.1)
[2017-09-13 22:35] LABS: URINE BACTERIA SMALL (NEG); URINE RBC TNTC /hpf (0-2)
[2017-09-13 22:44] LABS: ALB/GLOB RATIO 1.3 (1.1-1.8); ALBUMIN 4.4 g/dL (3.0-4.8); ALT/SGPT 39 U/L (7-56); AST/SGOT 37 U/L (14-36); BLOOD UREA NITROGEN 12 mg/dL (7-21); CALCIUM 9.7 mg/dL (8.4-10.5); GFR AFRICAN-AMERICAN > 60; GFR NON-AFRICAN AMERICAN > 60
[2017-09-14] MEDS ORDERED: Vitamins A & D Oint UD Foilpak TOP PRN (00:17)
[2017-09-14] MEDS ORDERED: Albuterol-Ipratrop 3 mg / 0.5 (3 ml) UD IH PRN (00:17)
--- NOTE | 2017-09-14 00:26 | CP.PCM.HP ---
<Abel Marte - Last Filed: 09/14/17 01:30> History of Present Illness - History of Present Illness History of Present Illness: Mrs. 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 Patient presented to [facility] two days [employer] for similar symptoms, was found to have a 4mm obstructing calculus at the left UPJ with mild dilatation of the renal collecting system and a UTI, and was sent home on PO narcotics, flomax and a seven day course of Macrobid. Despite these measures, the patient has not experienced any relief and noted an increase in the severity of her pain prior to coming to the ED tonight. She also notes nausea with associated NBNB vomiting for the past two days with minimal PO intake. She rated her pain as a 6 -8/10 on arrival but reports that her pain has been reduced to a 2/10 with IV Dilaudid in the ED. Of note, patient reports that she has had cough productive of white to yellow sputum the past three days as well. She denies any fevers, chills, headache, changes in her vision, chest pain, palpitations, SOB, wheezing , diarrhea, constipation, pyuria, vaginal bleeding/discharge, skin lesions or any numbness/tingling/weakness of any extremity. PMH: As stated above PSH: Appendectomy, Cholecystectomy, and partial hysterectomy Family History: Denies any nephrolithiasis, electrolyte disorders, cardiac disease/events or any malignancy Social History: Denies any tobacco, alcohol or illicit drug use; Retired from [employer]; Lives at home in with and children Allergies: Zosyn, Tazobactam and Statin's Home Medications: As per JUN PMD: Dr. Small Present on Admission - Present on Admission Any Indicators Present on Admission: No Review of Systems - Review of Systems Review of Systems: As stated in HPI, otherwise negative Past Patient History - Infectious Disease Hx of Infectious Diseases: None - Tetanus Immunizations Tetanus Immunization: Unknown - Past Medical History & Family History Past Medical History?: Yes - Past Social History Smoking Status: Never Smoked - CARDIAC Hx Cardiac Disorders: Yes Hx Hypertension: Yes - PULMONARY Hx Respiratory Disorders: Yes Hx Asthma: Yes Hx Pulmonary Embolism: Yes - NEUROLOGICAL Hx Neurological Disorder: Yes Hx Migraine: Yes - HEENT Hx HEENT Problems: No - RENAL Hx Chronic Kidney Disease: No - ENDOCRINE/METABOLIC Hx Endocrine Disorders: Yes (borderline DM) Hx Diabetes Mellitus Type 2: Yes - HEMATOLOGICAL/ONCOLOGICAL Hx Blood Disorders: Yes Other/Comment: Vitamin D deficiency - INTEGUMENTARY Hx Dermatological Problems: No - MUSCULOSKELETAL/RHEUMATOLOGICAL Hx Musculoskeletal Disorders: Yes Hx Back Pain: Yes Hx Fractures: Yes Hx Herniated Disk: Yes (S1) Hx Unsteady Gait: No Other/Comment: fibromyalgia. calcified tendonitis hip. torus palatinus. left knee torn ACL - GASTROINTESTINAL Hx Gastrointestinal Disorders: Yes Hx Gastroesophageal Reflux: Yes - GENITOURINARY/GYNECOLOGICAL Hx Genitourinary Disorders: Yes Other/Comment: 3 miscarriages - PSYCHIATRIC Hx Psychophysiologic Disorder: No Hx Substance Use: No - SURGICAL HISTORY Hx Appendectomy: Yes (2006) Hx Cholecystectomy: Yes (1991) Hx Hysterectomy: Yes (2005 Partial) Other/Comment: Left ACL repair. R knee arthroscopy - ANESTHESIA Hx Anesthesia: Yes Hx Anesthesia Reactions: No Hx Malignant Hyperthermia: No Meds Allergies/Adverse Reactions: Allergies Allergy/AdvReac Type Severity Reaction Status Date / Time piperacillin [From Zosyn] Allergy RASH Verified 09/13/17 21:30 tazobactam [From Zosyn] Allergy RASH Verified 09/13/17 21:30 atorvastatin [From Lipitor] AdvReac PAIN Verified 09/13/17 21:30 pravastatin [From Pravachol] AdvReac PAIN Verified 09/13/17 21:30 rosuvastatin [From Crestor] AdvReac PAIN Verified 09/13/17 21:30 Physical Exam - Constitutional Appears: Non-toxic, No Acute Distress - Head Exam Head Exam: ATRAUMATIC, NORMOCEPHALIC - Eye Exam Eye Exam: EOMI, Normal appearance, PERRL. absent: Conjunctival injection, Nystagmus, Periorbital swelling, Periorbital tenderness, Scleral icterus Pupil Exam: NORMAL ACCOMODATION, PERRL. absent: Fixed, Irregular, Miosis, Mydriatic, Unequal - ENT Exam ENT Exam: Mucous Membranes Moist, Normal Exam - Neck Exam Neck exam: Negative for: Lymphadenopathy, Meningismus, Tenderness, Thyromegaly - Respiratory Exam Respiratory Exam: Clear to Auscultation Bilateral, NORMAL BREATHING PATTERN. absent: Accessory Muscle Use, Chest Wall Tenderness, Decreased Breath Sounds, Prolonged Expiratory Phase, Rales, Rhonchi, Wheezes, Respiratory Distress, Stridor - Cardiovascular Exam Cardiovascular Exam: REGULAR RHYTHM, RRR, +S1, +S2. absent: Bradycardia, Tachycardia, Clicks, Diastolic murmur, Gallop, Irregular Rhythm, JVD, Rubs, +S4 , Systolic Murmur - GI/Abdominal Exam GI & Abdominal Exam: Normal Bowel Sounds, Soft, Tenderness (TTP to LUQ/left lateral flank). absent: Bruit, Diminished Bowel Sounds, Distended, Firm, Guarding, Hernia, Hyperactive Bowel Sounds, Hypoactive Bowel Sounds, Mass, Organomegaly, Pulsatile Mass, Rebound, Rigid - Extremities Exam Extremities exam: Positive for: full ROM, normal capillary refill, normal inspection, pedal pulses present. Negative for: calf tenderness, joint swelling , pedal edema, tenderness - Back Exam Back exam: CVA tenderness (L). absent: CVA tenderness (R) - Neurological Exam Neurological exam: Alert, Normal Gait, Oriented x3 - Psychiatric Exam Psychiatric exam: Normal Affect, Normal Mood - Skin Skin Exam: Dry, Intact, Normal Color, Warm Results - Vital Signs Recent Vital Signs: Last Vital Signs Temp 99.2 F 09/13/17 21:32 Pulse 64 09/13/17 21:32 Resp 17 09/13/17 21:32 BP 150/83 09/13/17 21:32 Pulse Ox 97 09/13/17 21:32 - Labs Result Diagrams: 09/13/17 22:06 09/13/17 22:06 Labs: Laboratory Results - last 24 hr 09/13/17 09/13/17 09/13/17 22:06 22:06 22:06 WBC 8.0 RBC 4.22 Hgb 12.6 Hct 38.4 MCV 91.0 MCH 29.9 MCHC 32.8 RDW 15.0 H Plt Count 362 MPV 9.5 Sodium 145 Potassium 4.0 Chloride 100 Carbon Dioxide 31 Anion Gap 18 BUN 12 Creatinine 0.8 Est GFR ( Amer) > 60 Est GFR (Non-Af Amer) > 60 Random Glucose 126 H Calcium 9.7 Total Bilirubin 0.2 AST 37 H ALT 39 Alkaline Phosphatase 79 Total Protein 7.9 Albumin 4.4 Globulin 3.4 Albumin/Globulin Ratio 1.3 Urine Color Yellow Urine Appearance Cloudy Urine pH 6.0 Ur Specific [place] >= 1.030 Urine Protein 100 H Urine Glucose (UA) Negative Urine Ketones Trace H Urine Blood Large H Urine Nitrate Negative Urine Bilirubin Negative Urine Urobilinogen 0.2 Ur Leukocyte Esterase Negative Urine RBC Tntc Urine WBC 1 - 3 Ur Epithelial Cells 4 - 5 Urine Bacteria Small Assessment & Plan - Assessment and Plan (Free Text) Assessment: 57 year old female with a past medical history significant for previous kidney stone, history of PE's on Xarelto, HTN, NIDDM2, HLD, asthma, uterine fibroids, and 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 Patient presented to [facility] two days [employer] for similar symptoms, was found to have a 4mm obstructing calculus at the left UPJ with mild dilatation of the renal collecting system and a UTI. She will be admitted for failed OP treatment of renal colic and will undergo urological evaluation. Plan: 1. Left Sided Renal Colic with UTI -CT Abdomen/Pelvis from 09/11/17 reviewed -Afebrile and without leukocytosis, tachycardia or tachypnea -Urine Culture pending -IV Levaquin 750mg daily for emperic coverage -Normal Saline 100mls/hr -Toradol 15mg IM Q6 PRN and Morphine 2mg IVP Q4 PRN for moderate and sever pain control, respectively -Zofran PRN for N/V -NPO Diet -Strain for Urine Calculi -Urology consulted, all recommendations appreciated 2. History of Asthma/Productive Cough -Chest X-Ray pending -Duonebs Q2 PRN 3. History of NIDDM2 -Holding PO Metformin -SSI-Low and Accuchecks Q6 4. History of PE -Holding PO Xarelto -Last dose was taken 09/12/17 GI Prophylaxis: Protonix DVT Prophylaxis: SCD Patient seen and case discussed with attending, Dr. Farfan. Carlos PGY1 - Date & Time Date: 09/14/17 Time: 00:25 Decision To Admit - Pt Status Changed To: Hospital Disposition Of: Observation - . Bed Request Type: Med/Surg <Ayden Farfan - Last Filed: 09/14/17 02:05> Results - Vital Signs Recent Vital Signs: Last Vital Signs Temp 99.2 F 09/13/17 21:32 Pulse 82 09/14/17 01:48 Resp 20 09/14/17 01:48 BP 122/61 09/14/17 01:48 Pulse Ox 97 09/14/17 01:48 - Labs Result Diagrams: 09/13/17 22:06 09/13/17 22:06 Labs: Laboratory Results - last 24 hr 09/14/17 01:58 POC Glucose (mg/dL) 104 Attending/Attestation - Attestation I have personally seen and examined this patient.: Yes I have fully participated in the care of the patient.: Yes I have reviewed all pertinent clinical information: Yes Notes (Text): 09/14/17 02:05 Patient was seen when she was in bed # 7 in the ER. Agree with history, physical examination, assessment and plan.
[2017-09-14] MEDS ORDERED: Sodium Chloride 0.9% 1,000 ML IV SCH (00:30)
[2017-09-14] MEDS: Insulin Reg-LOW-Coverage SC SCH ×5 (01:59→22:24)
[2017-09-14] MEDS ORDERED: Nitroglycerin 2% Ointment Foilpak UD TOP STA (02:06)
[2017-09-14 06:38] LABS: BASO # 0.02 K/mm3 (0.0-2.0); BASO % 0.3 % (0.0-3.0); EOS % 0.3 % (1.5-5.0); GRAN # 4.05 (1.4-6.5); GRAN % 62.6 % (50.0-68.0); HEMOGLOBIN 11.1 g/dL (12.0-16.0); LYMPH # 1.9 (1.2-3.4); LYMPH % 29.8 % (22.0-35.0); MEAN CELL VOLUME 90.4 fl (80.0-105.0); MEAN CORPUSCULAR HEMOGLOBIN 29.5 pg (25.0-35.0); MEAN CORPUSCULAR HGB CONC 32.6 g/dl (31.0-37.0); MEAN PLATELET VOLUME 9.3 fl (7.0-11.0); MONO # 0.5 (0.1-0.6); RBC 3.76 10^6/uL (3.5-6.1); WHITE BLOOD COUNT 6.5 10^3/ul (4.5-11.0)
[2017-09-14 06:47] LABS: ALB/GLOB RATIO 1.2 (1.1-1.8); ALBUMIN 3.6 g/dL (3.0-4.8); ALT/SGPT 33 U/L (7-56); AST/SGOT 38 U/L (14-36); BLOOD UREA NITROGEN 10 mg/dL (7-21); CALCIUM 8.6 mg/dL (8.4-10.5); GFR AFRICAN-AMERICAN > 60; GFR NON-AFRICAN AMERICAN > 60
[2017-09-14 07:20] LABS: INR 2.33 (0.93-1.08); PARTIAL THROMBOPLASTIN TIME 36.6 Seconds (25.1-36.5); PROTHROMBIN TIME 27.3 SECONDS (9.4-12.5)
--- NOTE | 2017-09-14 08:20 | RAD ---
HISTORY: Cough COMPARISON: 04/14/2016 FINDINGS: LUNGS: No active pulmonary disease. PLEURA: No significant pleural effusion identified, no pneumothorax apparent. CARDIOVASCULAR: Normal. OSSEOUS STRUCTURES: No significant abnormalities. VISUALIZED UPPER ABDOMEN: Normal. OTHER FINDINGS: None. IMPRESSION: No active disease.
[2017-09-14] MEDS ORDERED: levoFLOXacin 750 mg in D5W 750 MG/150 ML BAG IVPB SCH (10:00)
--- NOTE | 2017-09-14 10:49 | RAD ---
HISTORY: Kidney Stone COMPARISON: No prior. FINDINGS: BOWEL: Normal. No obstruction. No free air. BONES: Normal. OTHER FINDINGS: No renal or ureteral stones visualized IMPRESSION: No active disease.
[2017-09-14] MEDS: Morphine 2 mg/2 mL syringe IVP PRN ×2 (13:54→22:17)
[2017-09-14] MEDS ORDERED: Iohexol 240 (50 ml) ONE (15:56)
[2017-09-14] MEDS ORDERED: Midazolam 2 MG/2 ML VIAL ONE (18:18)
[2017-09-14] MEDS ORDERED: Propofol 10 mg/ml Inj (20 ML) ONE (18:18)
[2017-09-14] MEDS ORDERED: Lidocaine 2% Inj (20ml) ONE (18:18)
[2017-09-14] MEDS ORDERED: cefTRIAXone (Rocephin) 1 gm Inj ONE (19:06)
[2017-09-14] MEDS ORDERED: HYDROmorphone 0.5 mg/0.5 ml ISec IVP PRN (19:29)
[2017-09-14] MEDS ORDERED: Lactated Ringer's 1,000 ML IV SCH (19:30)
--- NOTE | 2017-09-14 19:41 | CP.PCM.CON ---
Past Patient History - Infectious Disease Hx of Infectious Diseases: None - Tetanus Immunizations Tetanus Immunization: Unknown - Past Medical History & Family History Past Medical History?: Yes - Past Social History Smoking Status: Never Smoked - CARDIAC Hx Cardiac Disorders: Yes Hx Hypertension: Yes - PULMONARY Hx Respiratory Disorders: Yes Hx Asthma: Yes Hx Pulmonary Embolism: Yes - NEUROLOGICAL Hx Neurological Disorder: Yes Hx Migraine: Yes - HEENT Hx HEENT Problems: No - RENAL Hx Chronic Kidney Disease: No - ENDOCRINE/METABOLIC Hx Endocrine Disorders: Yes (borderline DM) Hx Diabetes Mellitus Type 2: Yes - HEMATOLOGICAL/ONCOLOGICAL Hx Blood Transfusions: No - INTEGUMENTARY Hx Dermatological Problems: No - MUSCULOSKELETAL/RHEUMATOLOGICAL Hx Musculoskeletal Disorders: Yes Hx Back Pain: Yes Hx Fractures: Yes Hx Herniated Disk: Yes (S1) Hx Unsteady Gait: No Other/Comment: fibromyalgia. calcified tendonitis hip. torus palatinus. left knee torn ACL - GASTROINTESTINAL Hx Gastrointestinal Disorders: Yes Hx Gastroesophageal Reflux: Yes - GENITOURINARY/GYNECOLOGICAL Hx Genitourinary Disorders: Yes Other/Comment: 3 miscarriages - PSYCHIATRIC Hx Psychophysiologic Disorder: No Hx Substance Use: No - SURGICAL HISTORY Hx Surgeries: Yes - ANESTHESIA Hx Anesthesia Reactions: No Hx Malignant Hyperthermia: No Meds Allergies/Adverse Reactions: Allergies Allergy/AdvReac Type Severity Reaction Status Date / Time piperacillin [From Zosyn] Allergy RASH Verified 09/13/17 21:30 tazobactam [From Zosyn] Allergy RASH Verified 09/13/17 21:30 atorvastatin [From Lipitor] AdvReac PAIN Verified 09/13/17 21:30 pravastatin [From Pravachol] AdvReac PAIN Verified 09/13/17 21:30 rosuvastatin [From Crestor] AdvReac PAIN Verified 09/13/17 21:30 - Medications Medications: Current Medications Albuterol/Ipratropium (Duoneb 3 Mg/0.5 Mg (3 Ml) Ud) 3 ml IH Q2H PRN PRN Reason: Shortness of Breath Hydromorphone HCl (Dilaudid) 0.5 mg IVP Q15M PRN PRN Reason: Pain, moderate (4-7) Stop: 09/15/17 19:30 Sodium Chloride (Sodium Chloride 0.9%) 1,000 mls @ 100 mls/hr IV .Q10H JENNA Last Admin: 09/14/17 01:52 Dose: 100 mls/hr Levofloxacin/Dextrose (Levaquin 750mg) 750 mg in 150 mls @ 100 mls/hr IVPB DAILY [facility] PRN Reason: Protocol Last Admin: 09/14/17 09:15 Dose: 100 mls/hr Lactated Ringer's (Lactated Ringer's) 1,000 mls @ 75 mls/hr IV .[id number] [facility] Stop: 09/14/17 21:31 Insulin Human Regular (Humulin R Low) 0 units SC ACHS [facility] PRN Reason: Protocol Last Admin: 09/14/17 16:10 Dose: Not Given Ketorolac Tromethamine (Toradol) 15 mg IM Q6 PRN PRN Reason: Pain, moderate (4-7) Stop: 09/19/17 00:18 Last Admin: 09/14/17 08:53 Dose: 15 mg Morphine Sulfate (Morphine) 2 mg IVP Q4H PRN PRN Reason: Pain, severe (8-10) Last Admin: 09/14/17 13:54 Dose: 2 mg Ondansetron HCl (Zofran Inj) 4 mg IVP Q4H PRN PRN Reason: Nausea/Vomiting Last Admin: 09/14/17 13:53 Dose: 4 mg Pantoprazole Sodium (Protonix Inj) 40 mg IVP DAILY [facility] Last Admin: 09/14/17 09:15 Dose: 40 mg Tamsulosin HCl (Flomax) 0.4 mg PO DAILY [facility] Last Admin: 09/14/17 09:15 Dose: 0.4 mg Vitamin A (Vitamin A & D Oint Ud Foilpak) 1 ea TOP Q2 PRN PRN Reason: Please use for dry lips Results - Vital Signs Recent Vital Signs: Last Vital Signs Temp 98.4 F 09/14/17 19:25 Pulse 74 09/14/17 19:25 Resp 16 09/14/17 19:25 BP 146/73 09/14/17 19:25 Pulse Ox 98 09/14/17 19:25 - Labs Result Diagrams: 09/14/17 05:45 09/14/17 05:45 Labs: Laboratory Results - last 24 hr 09/14/17 09/14/17 09/14/17 01:58 05:45 05:45 WBC 6.5 RBC 3.76 Hgb 11.1 L Hct 34.0 L MCV 90.4 MCH 29.5 MCHC 32.6 RDW 15.0 H Plt Count 327 MPV 9.3 Gran % 62.6 Lymph % (Auto) 29.8 Throckmorton % (Auto) 7.0 H Eos % (Auto) 0.3 L Baso % (Auto) 0.3 Gran # 4.05 Lymph # (Auto) 1.9 Throckmorton # (Auto) 0.5 Eos # (Auto) 0.0 Baso # (Auto) 0.02 PT INR APTT Sodium 144 Potassium 3.6 Chloride 104 Carbon Dioxide 30 Anion Gap 14 BUN 10 Creatinine 0.7 Est GFR ( Amer) > 60 Est GFR (Non-Af Amer) > 60 POC Glucose (mg/dL) 104 Random Glucose 95 Calcium 8.6 Total Bilirubin 0.3 AST 38 H ALT 33 Alkaline Phosphatase 67 Total Protein 6.6 Albumin 3.6 Globulin 3.0 Albumin/Globulin Ratio 1.2 09/14/17 09/14/17 09/14/17 05:45 07:34 11:47 WBC RBC Hgb Hct MCV MCH MCHC RDW Plt Count MPV Gran % Lymph % (Auto) Throckmorton % (Auto) Eos % (Auto) Baso % (Auto) Gran # Lymph # (Auto) Throckmorton # (Auto) Eos # (Auto) Baso # (Auto) PT 27.3 H INR 2.33 H APTT 36.6 H Sodium Potassium Chloride Carbon Dioxide Anion Gap BUN Creatinine Est GFR ( Amer) Est GFR (Non-Af Amer) POC Glucose (mg/dL) 92 92 Random Glucose Calcium Total Bilirubin AST ALT Alkaline Phosphatase Total Protein Albumin Globulin Albumin/Globulin Ratio Assessment & Plan - Assessment and Plan (Free Text) Assessment: IMP: L renal colic urolithiasis DM Hypertension Hx of pulmonary embolus - Date & Time Date: 09/14/17 Time: 06:30
--- NOTE | 2017-09-14 19:43 | PCM.SURG1 ---
Surgeon's Initial Post Op Note - Surgeon's Notes Surgeon: Ann Randall Video Effects Editor: none Type of Anesthesia: General LMA Pre-Operative Diagnosis: L renal colic Operative Findings: L hydronephrosis Post-Operative Diagnosis: same Operation Performed: cysto. L rtg pyelogram. insertion of L ureteral stent. EUA Specimen/Specimens Removed: urine Estimated Blood Loss: EBL {In ML}: 0 Blood Products Given: N/A Post-Op Condition: Good Date of Surgery/Procedure: 09/14/17 Time of Surgery/Procedure: 07:25
[2017-09-14] MEDS ORDERED: Oxycodone/Acetaminophen 5/325 mg Tab PO PRN (19:44)
[2017-09-14] MEDS ORDERED: HYDROmorphone 0.5 mg/0.5 ml ISec IVP ONE (19:45)
[2017-09-14] MEDS ORDERED: Oxycodone/Acetaminophen 5/325 mg Tab ONE (20:05)
[2017-09-15] MEDS: Morphine 2 mg/2 mL syringe IVP PRN (02:23)
[2017-09-15 06:47] LABS: PROTHROMBIN TIME 13.9 SECONDS (9.4-12.5)
[2017-09-15 06:48] LABS: INR 1.2 (0.93-1.08); PARTIAL THROMBOPLASTIN TIME 28.7 Seconds (25.1-36.5)
[2017-09-15 06:50] LABS: BASO # 0.03 K/mm3 (0.0-2.0); BASO % 0.6 % (0.0-3.0); EOS # 0.1 (0.0-0.7); EOS % 1.1 % (1.5-5.0); GRAN # 3.01 (1.4-6.5); GRAN % 56.6 % (50.0-68.0); HEMOGLOBIN 11.1 g/dL (12.0-16.0); LYMPH # 1.7 (1.2-3.4); LYMPH % 31.3 % (22.0-35.0); MEAN CELL VOLUME 90.9 fl (80.0-105.0); MEAN CORPUSCULAR HEMOGLOBIN 28.9 pg (25.0-35.0); MEAN CORPUSCULAR HGB CONC 31.8 g/dl (31.0-37.0); MEAN PLATELET VOLUME 9.3 fl (7.0-11.0); MONO # 0.6 (0.1-0.6); MONO % 10.4 % (1.0-6.0); RBC 3.84 10^6/uL (3.5-6.1); RED CELL DISTRIBUTION WIDTH 14.9 % (11.5-14.5); WHITE BLOOD COUNT 5.3 10^3/ul (4.5-11.0)
[2017-09-15 07:00] LABS: ALB/GLOB RATIO 1.2 (1.1-1.8); ALBUMIN 3.7 g/dL (3.0-4.8); ALT/SGPT 35 U/L (7-56); AST/SGOT 37 U/L (14-36); BLOOD UREA NITROGEN 9 mg/dL (7-21); CALCIUM 8.6 mg/dL (8.4-10.5); GFR AFRICAN-AMERICAN > 60; GFR NON-AFRICAN AMERICAN > 60
[2017-09-15] MEDS: Insulin Reg-LOW-Coverage SC SCH (07:44)
[2017-09-15 08:17] VITALS: BP 113/65; PULSE 73; RESP 16; TEMP 98.6; O2SAT 93
--- NOTE | 2017-09-15 10:08 | RAD ---
HISTORY: Check stone COMPARISON: 09/14/2017 abdomen three views at 2118 hours FINDINGS: BOWEL: Stool retention. . No obstruction BONES: Spondylosis. Bilateral hip arthrosis OTHER FINDINGS: Double-J left ureteral stent in place. Above the proximal coil a 4 mm left renal icalculus is suggested; and similar in appearance. T the distal core all projects over bladder Right upper quadrant cholecystectomy clips suggested IMPRESSION: Left renal 4 mm calculus with left double-J left ureteral stent in satisfactory appearing position
--- NOTE | 2017-09-15 10:15 | RAD ---
FINDINGS: 09/14/2017 at 1028 hours BOWEL: Stool retention. . No obstruction BONES: Spondylosis. Bilateral hip arthrosis OTHER FINDINGS: Double-J left ureteral stent in place. Above the proximal coil a 4 mm left renal icalculus is suggested;. This is not seen as such on the prior study T the distal core all projects over bladder Right upper quadrant cholecystectomy clips suggested IMPRESSION: Left renal 4 mm calculus with left double-J left ureteral stent in satisfactory appearing position
--- NOTE | 2017-09-15 13:20 | RAD ---
PROCEDURE: Fluoroscopy up to 1 hour HISTORY: STENT INSERTION (LEFT) COMPARISON: TECHNIQUE: Fluoroscopy was provided in the a operating room. 53.6 seconds of fluoro time. Cumulative dose 15.06 mGy. Twelve images submitted FINDINGS: The study shows placement of a left ureteral stent IMPRESSION: As above
--- NOTE | 2017-09-15 15:30 | CON ---
DATE: 09/14/2017 Urology consultation is requested by Dr. Ros Rivera. Urology consultation is filled by Dr. Ashley Randall. REASON FOR CONSULTATION: Left renal colic. The patient is a 57-year-old female with left flank pain. The patient has history of left flank pain for the past approximately five days. The patient had previously presented to the emergency room three days ago. She had left flank pain and hematuria. She was found to have an obstructing 4-mm left-sided stone. The patient was subsequently discharged from the hospital. However, the patient has re-presented to the emergency room with pain. There has been hematuria. There has been no dysuria. No fever. The patient does report nausea. She has also vomited. The patient has history of diabetes, hypertension. The patient has history of previous lower extremity surgery. She developed postoperative pulmonary embolus. She has been on Xarelto since that time, which is approximately three to four years ago. The patient reports there is good urinary stream and good control. The patient lives with her . Previous surgery has included appendectomy, partial hysterectomy, and cholecystectomy. There is no history of previous urolithiasis. The patient does not smoke or drink. The patient is on disability. She previously worked in the [employer]. THE PATIENT REPORTS ALLERGY TO ZOSYN, TAZOBACTAM AND STATINS. The patient's previous surgery on the knee was ACL repair. The patient reports no chest pain or shortness of breath. PHYSICAL EXAMINATION: GENERAL: The patient is a well-developed, well-nourished middle-aged female. The patient is having pain in the left side of the abdomen and flank. ABDOMEN: Soft, not distended. There is mild left-sided abdominal tenderness. There is mild left CVA tenderness. LABORATORY DATA: White blood count 8000, hematocrit 38, platelet count 362,000. BUN 12, creatinine 0.8. Urinalysis reveals cloudy urine, too [id number] red blood cells, 1 to 3 white blood cells. IMPRESSION: Left renal colic, left ureteral calculus. The patient has persistent renal colic. She has persistent pain. I reviewed with the patient the findings and the options of therapy. In view of the persistent pain, the patient is scheduled for a cystoscopy and stent insertion. Physical therapy to follow according to the patient's clinical course. I discussed the findings with the patient and the as well. The patient will also require treatment for the stone. Ashley Randall MD
--- NOTE | 2017-09-15 17:07 | OP ---
PROCEDURE DATE: 09/14/2017 PREOPERATIVE DIAGNOSIS: Left renal colic. POSTOPERATIVE DIAGNOSES: 1. Left renal colic. 2. Urolithiasis. 3. Left hydronephrosis. PROCEDURES: 1. Cystoscopy. 2. Left ureteral catheterization. 3. Insertion of left ureteral stent. OPERATING SURGEON: Ashley Randall MD CAT scan of the abdomen and pelvis reviewed. There was a 4 mm stone at the level of the left ureter, just at the level of the lower pole of the kidney. Stone was noted at the proximal L3 level. PROCEDURE IN DETAIL: The patient was placed in lithotomy position. Genitalia prepped and draped sterilely. Anesthesia was provided by the anesthesiologist. Procedure was performed under video endoscopic control as well as under fluoroscopic control with C-arm. Quality Assurance Practice Manager fluoroscopy of the abdomen was obtained. There were no definite calcifications identified along the course of the kidney or ureter. A 22-Maltese cystoscope sheath was introduced. Urine was sent for bacteriologic examination. The urethra and bladder were inspected. FINDINGS: There was no bladder tumor. There was no bladder stone. There was mild cystitis. Ureteral orifices were normal in position and shape. There was no erythema of the orifices. There was no bladder diverticulum. Bladder contour was normal. A 0.035 inch guidewire was inserted into the left ureteral orifice. The guidewire was negotiated under fluoroscopic control up to the level of the kidney. There was no definite point of obstruction encountered. An open-ended catheter was inserted over the guidewire. There was noted to be . Iodinated contrast was instilled. Hydronephrosis of the renal pelvis and collecting system was detected. The guidewire was reinserted. A 6-Maltese Multi-Length stent was inserted over the guidewire. Proper stent position was confirmed with fluoroscopy and endoscopy. The guidewire was removed. The stent was left in place. The bladder was reinspected and confirmed the above findings. There was noted to be good drainage from the kidney on subsequent views as well as viewing the stent through the cystoscope. The bladder was then drained. Cystoscope and sheath removed. Exam under anesthesia/bimanual examination was performed. There was mild uterine enlargement. There was no adnexal mass. The patient was returned to the supine position. The patient tolerated the procedure without complication. Ashley Randall MD [facility] # [id number]
--- NOTE | 2017-09-16 06:48 | CP.PCM.DIS ---
<Samuel Hendrickson - Last Filed: 09/16/17 14:06> Provider - Provider Date of Admission: 09/14/17 00:19 Attending physician: Ros Rivera MD Primary care physician: Davion Small MD Consults: Urology: Ashley Randall Time Spent in preparation of Discharge (in minutes): 70 Hospital Course - Lab Results Lab Results: Micro Results 09/14/17 07:22 Urine,Clean Catch Urine Culture - Final No Growth (<1,000 CFU/ML) Most Recent Lab Values WBC 5.3 10^3/ul (4.5-11.0) 09/15/17 06:15 RBC 3.84 10^6/uL (3.5-6.1) 09/15/17 06:15 Hgb 11.1 g/dL (12.0-16.0) L 09/15/17 06:15 Hct 34.9 % (36.0-48.0) L 09/15/17 06:15 MCV 90.9 fl (80.0-105.0) 09/15/17 06:15 MCH 28.9 pg (25.0-35.0) 09/15/17 06:15 MCHC 31.8 g/dl (31.0-37.0) 09/15/17 06:15 RDW 14.9 % (11.5-14.5) H 09/15/17 06:15 Plt Count 313 10^3/uL (120.0-450.0) 09/15/17 06:15 MPV 9.3 fl (7.0-11.0) 09/15/17 06:15 Gran % 56.6 % (50.0-68.0) 09/15/17 06:15 Lymph % (Auto) 31.3 % (22.0-35.0) 09/15/17 06:15 Kerr % (Auto) 10.4 % (1.0-6.0) H 09/15/17 06:15 Eos % (Auto) 1.1 % (1.5-5.0) L 09/15/17 06:15 Baso % (Auto) 0.6 % (0.0-3.0) 09/15/17 06:15 Gran # 3.01 (1.4-6.5) 09/15/17 06:15 Lymph # (Auto) 1.7 (1.2-3.4) 09/15/17 06:15 Kerr # (Auto) 0.6 (0.1-0.6) 09/15/17 06:15 Eos # (Auto) 0.1 (0.0-0.7) 09/15/17 06:15 Baso # (Auto) 0.03 K/mm3 (0.0-2.0) 09/15/17 06:15 PT 13.9 SECONDS (9.4-12.5) H 09/15/17 06:15 INR 1.20 (0.93-1.08) H 09/15/17 06:15 APTT 28.7 Seconds (25.1-36.5) 09/15/17 06:15 Sodium 145 mmol/L (132-148) 09/15/17 06:15 Potassium 3.8 mmol/L (3.6-5.0) 09/15/17 06:15 Chloride 107 mmol/L (98-107) 09/15/17 06:15 Carbon Dioxide 27 mmol/L (21-33) 09/15/17 06:15 Anion Gap 15 (10-20) 09/15/17 06:15 BUN 9 mg/dL (7-21) 09/15/17 06:15 Creatinine 0.7 mg/dl (0.7-1.2) 09/15/17 06:15 Est GFR ( Amer) > 60 09/15/17 06:15 Est GFR (Non-Af Amer) > 60 09/15/17 06:15 POC Glucose (mg/dL) 91 mg/dL (65-110) 09/15/17 07:31 Random Glucose 96 mg/dL (70-110) 09/15/17 06:15 Calcium 8.6 mg/dL (8.4-10.5) 09/15/17 06:15 Total Bilirubin 0.3 mg/dL (0.2-1.3) 09/15/17 06:15 AST 37 U/L (14-36) H 09/15/17 06:15 ALT 35 U/L (7-56) 09/15/17 06:15 Alkaline Phosphatase 65 U/L (38-126) 09/15/17 06:15 Total Protein 6.7 g/dL (5.8-8.3) 09/15/17 06:15 Albumin 3.7 g/dL (3.0-4.8) 09/15/17 06:15 Globulin 3.1 gm/dL 09/15/17 06:15 Albumin/Globulin Ratio 1.2 (1.1-1.8) 09/15/17 06:15 Urine Color Yellow (YELLOW) 09/13/17 22:06 Urine Appearance Cloudy (CLEAR) 09/13/17 22:06 Urine pH 6.0 (4.7-8.0) 09/13/17 22:06 Ur Specific Nisula >= 1.030 (1.005-1.035) 09/13/17 22:06 Urine Protein 100 mg/dL (<30 mg/dL) H 09/13/17 22:06 Urine Glucose (UA) Negative mg/dL (NEGATIVE) 09/13/17 22:06 Urine Ketones Trace mg/dL (NEGATIVE) H 09/13/17 22:06 Urine Blood Large (NEGATIVE) H 09/13/17 22:06 Urine Nitrate Negative (NEGATIVE) 09/13/17 22:06 Urine Bilirubin Negative (NEGATIVE) 09/13/17 22:06 Urine Urobilinogen 0.2 E.U./dL (<1 E.U./dL) 09/13/17 22:06 Ur Leukocyte Esterase Negative Melonie/uL (NEGATIVE) 09/13/17 22:06 Urine RBC Tntc /hpf (0-2) 09/13/17 22:06 Urine WBC 1 - 3 /hpf (0-6) 09/13/17 22:06 Ur Epithelial Cells 4 - 5 /hpf (0-5) 09/13/17 22:06 Urine Bacteria Small (NEG) 09/13/17 22:06 - Hospital Course Hospital Course: 57 year old female with a past medical history significant for previous kidney stone, history of PE's on Xarelto, HTN, NIDDM2, HLD, asthma, uterine fibroids, and 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 Urology was consulted, she was started on abx and given pain medications. She wasmade NPO and urology took her to the OR and placed a ureteral stent. She was told to follow up in the afternoon after discharge at the stone center. On admission her xarelto was held and she was advised to follow up with urology to see when she can resume it. Discharge Exam - Head Exam Head Exam: ATRAUMATIC, NORMOCEPHALIC - Eye Exam Eye Exam: EOMI, Normal appearance, PERRL - Respiratory Exam Respiratory Exam: Clear to PA & Lateral, NORMAL BREATHING PATTERN, UNREMARKABLE - Cardiovascular Exam Cardiovascular Exam: REGULAR RHYTHM, +S1, +S2 - GI/Abdominal Exam GI & Abdominal Exam: Soft, Unremarkable - Neurological Exam Neurological exam: Alert, Oriented x3 Discharge Plan - Discharge Medications Prescriptions: Ciprofloxacin [Cipro] 500 mg PO BID #16 tab - Follow Up Plan Condition: STABLE Disposition: HOME/ ROUTINE Instructions: Cystoscopy, Renal Colic (DC) Additional Instructions: Please take cipro twice a day for 8 days continue the flomax from home as well as the hydrocodone from home as needed for pain. Hold the xarelto for now due to the blood in urine, and check with urologist to when to resume Please follow this afternoon in the stone center with Dr. Randall. Referrals: Davion Small MD [Primary Care Provider] - Ashley Randall MD [Staff Provider] - <Ros Rivera - Last Filed: 09/17/17 15:21> Provider - Provider Date of Admission: 09/14/17 00:19 Attending physician: Ros Rivera MD Primary care physician: Davion Small MD Hospital Course - Lab Results Lab Results: Micro Results 09/14/17 19:12 Urine Urine Culture - Final No Growth (<1,000 CFU/ML) 09/14/17 07:22 Urine,Clean Catch Urine Culture - Final No Growth (<1,000 CFU/ML) Most Recent Lab Values WBC 5.3 10^3/ul (4.5-11.0) 09/15/17 06:15 RBC 3.84 10^6/uL (3.5-6.1) 09/15/17 06:15 Hgb 11.1 g/dL (12.0-16.0) L 09/15/17 06:15 Hct 34.9 % (36.0-48.0) L 09/15/17 06:15 MCV 90.9 fl (80.0-105.0) 09/15/17 06:15 MCH 28.9 pg (25.0-35.0) 09/15/17 06:15 MCHC 31.8 g/dl (31.0-37.0) 09/15/17 06:15 RDW 14.9 % (11.5-14.5) H 09/15/17 06:15 Plt Count 313 10^3/uL (120.0-450.0) 09/15/17 06:15 MPV 9.3 fl (7.0-11.0) 09/15/17 06:15 Gran % 56.6 % (50.0-68.0) 09/15/17 06:15 Lymph % (Auto) 31.3 % (22.0-35.0) 09/15/17 06:15 Kerr % (Auto) 10.4 % (1.0-6.0) H 09/15/17 06:15 Eos % (Auto) 1.1 % (1.5-5.0) L 09/15/17 06:15 Baso % (Auto) 0.6 % (0.0-3.0) 09/15/17 06:15 Gran # 3.01 (1.4-6.5) 09/15/17 06:15 Lymph # (Auto) 1.7 (1.2-3.4) 09/15/17 06:15 Kerr # (Auto) 0.6 (0.1-0.6) 09/15/17 06:15 Eos # (Auto) 0.1 (0.0-0.7) 09/15/17 06:15 Baso # (Auto) 0.03 K/mm3 (0.0-2.0) 09/15/17 06:15 PT 13.9 SECONDS (9.4-12.5) H 09/15/17 06:15 INR 1.20 (0.93-1.08) H 09/15/17 06:15 APTT 28.7 Seconds (25.1-36.5) 09/15/17 06:15 Sodium 145 mmol/L (132-148) 09/15/17 06:15 Potassium 3.8 mmol/L (3.6-5.0) 09/15/17 06:15 Chloride 107 mmol/L (98-107) 09/15/17 06:15 Carbon Dioxide 27 mmol/L (21-33) 09/15/17 06:15 Anion Gap 15 (10-20) 09/15/17 06:15 BUN 9 mg/dL (7-21) 09/15/17 06:15 Creatinine 0.7 mg/dl (0.7-1.2) 09/15/17 06:15 Est GFR ( Amer) > 60 09/15/17 06:15 Est GFR (Non-Af Amer) > 60 09/15/17 06:15 POC Glucose (mg/dL) 91 mg/dL (65-110) 09/15/17 07:31 Random Glucose 96 mg/dL (70-110) 09/15/17 06:15 Calcium 8.6 mg/dL (8.4-10.5) 09/15/17 06:15 Total Bilirubin 0.3 mg/dL (0.2-1.3) 09/15/17 06:15 AST 37 U/L (14-36) H 09/15/17 06:15 ALT 35 U/L (7-56) 09/15/17 06:15 Alkaline Phosphatase 65 U/L (38-126) 09/15/17 06:15 Total Protein 6.7 g/dL (5.8-8.3) 09/15/17 06:15 Albumin 3.7 g/dL (3.0-4.8) 09/15/17 06:15 Globulin 3.1 gm/dL 09/15/17 06:15 Albumin/Globulin Ratio 1.2 (1.1-1.8) 09/15/17 06:15 Urine Color Yellow (YELLOW) 09/13/17 22:06 Urine Appearance Cloudy (CLEAR) 09/13/17 22:06 Urine pH 6.0 (4.7-8.0) 09/13/17 22:06 Ur Specific Nisula >= 1.030 (1.005-1.035) 09/13/17 22:06 Urine Protein 100 mg/dL (<30 mg/dL) H 09/13/17 22:06 Urine Glucose (UA) Negative mg/dL (NEGATIVE) 09/13/17 22:06 Urine Ketones Trace mg/dL (NEGATIVE) H 09/13/17 22:06 Urine Blood Large (NEGATIVE) H 09/13/17 22:06 Urine Nitrate Negative (NEGATIVE) 09/13/17 22:06 Urine Bilirubin Negative (NEGATIVE) 09/13/17 22:06 Urine Urobilinogen 0.2 E.U./dL (<1 E.U./dL) 09/13/17 22:06 Ur Leukocyte Esterase Negative Melonie/uL (NEGATIVE) 09/13/17 22:06 Urine RBC Tntc /hpf (0-2) 09/13/17 22:06 Urine WBC 1 - 3 /hpf (0-6) 09/13/17 22:06 Ur Epithelial Cells 4 - 5 /hpf (0-5) 09/13/17 22:06 Urine Bacteria Small (NEG) 09/13/17 22:06 Attending/Attestation - Attestation I have personally seen and examined this patient.: Yes I have fully participated in the care of the patient.: Yes I have reviewed all pertinent clinical information, including history, physical exam and plan: Yes Notes (Text): 09/17/17 15:13 Medical record note made by the resident after discussion with my direction and input after the patient was personally seen and examined by me. I have reviewed the chart and agree that the record accurately reflects by personal performance of the history, physical exam, data review, and medical decision-making, in the course for the patient. I have also personally directed the plan of care. 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 Patient was found to have a 4mm obstructing calculus at the left UPJ with mild dilatation of the renal collecting system and possible Pyelonephrittis. Patient was evaluated by Urology and underwent ureteral stent placement.She is feeling better.She is afebrile, does nopt has any Nausea or vomiting.She will be discharged home on oral cipro 500 mg PO bid for 8 days. Her Xarelto is on hold as patient is still having blood in urine.Hemoglobin is stable.She is going to follow up with her Urologist this evening before restarting her Xarelto.This was discussed in detail with her. Management plan was discussed in detail with patient. Education was provided.
== END 2017-09-15 09:56 | disposition home or self-care (01) ==
LOC: ED 21:21 → ERH 09-14 00:19 → 3RSO 09-14 02:11
PROVIDERS: ADMIT Internal Medicine; ATTEND Internal Medicine
DX: N13.2 Hydronephrosis with renal and ureteral calculous obstruction (principal); N30.91 Cystitis, unspecified with hematuria; I10 Essential (primary) hypertension; E78.5 Hyperlipidemia, unspecified; E11.9 Type 2 diabetes mellitus without complications; G89.29 Other chronic pain; E55.9 Vitamin D deficiency, unspecified; K21.9 Gastro-esophageal reflux disease without esophagitis; M79.7 Fibromyalgia; D25.9 Leiomyoma of uterus, unspecified; N85.2 Hypertrophy of uterus; J45.909 Unspecified asthma, uncomplicated; M65.2 Calcific tendinitis; Z86.711 Personal history of pulmonary embolism; Z79.84 Long term (current) use of oral hypoglycemic drugs
CPT/HCPCS: 36415; 52332; 71045; 74022; 80053; 81001; 82948; 85025; 85027; 85610; 85730; 87086; 96361; 96365; 96372; 96375; 96376; 99284; C1758; C1769; C2625; C9113; G0378; J0696; J1170; J1885; J2250; J2270; J2405; J2704; J3010; J7030; J7120; Q9966

== ENCOUNTER 2018-03-28 08:58 | Emergency (ER) | payer MEDICARE ==
[2018-03-28 09:15] VITALS: BMI 36.1
[2018-03-28 09:16] VITALS: RESP 18; O2SAT 97
--- NOTE | 2018-03-28 09:27 | ED PDOC ---
Arrival/HPI - General Chief Complaint: Upper Extremity Problem/Injury Historian: Patient - History of Present Illness Narrative History of Present Illness (Text): 03/28/18 09:24 57yo female with pmhx of hypertension, Diabetes, hyperlipdemia who present to ED with complaint of right shoulder pain. states when she lifted her arm to pull down her curtain this morning she heard a popping sound and then started having pain on the shoulder. Notes pain with abduction of the arm. Took Gabapentin for her usual pain. denies focal weakness, chest pain, paresthesia, swelling, any other complaint. Past Medical History - Provider Review Nursing Documentation Reviewed: Yes - Infectious Disease Hx of Infectious Diseases: None - Tetanus Immunization Tetanus Immunization: Unknown - Cardiac Hx Cardiac Disorders: Yes Hx Hypertension: Yes - Pulmonary Hx Respiratory Disorders: Yes Hx Asthma: Yes Hx Pulmonary Embolism: Yes - Neurological Hx Neurological Disorder: Yes Hx Migraine: Yes - HEENT Hx HEENT Disorder: No - Renal Hx Renal Disorder: No - Endocrine/Metabolic Hx Endocrine Disorders: Yes (borderline DM) Hx Diabetes Mellitus Type 2: Yes - Hematological/Oncological Hx Blood Disorders: No - Integumentary Hx Dermatological Disorder: No - Musculoskeletal/Rheumatological Hx Musculoskeletal Disorders: Yes Hx Back Pain: Yes Hx Fractures: Yes Hx Herniated Disk: Yes (S1) Hx Unsteady Gait: No Other/Comment: fibromyalgia. calcified tendonitis hip. torus palatinus. left knee torn ACL - Gastrointestinal Hx Gastrointestinal Disorders: Yes Hx Gastroesophageal Reflux: Yes - Genitourinary/Gynecological Hx Genitourinary Disorders: Yes Other/Comment: 3 miscarriages - Psychiatric Hx Psychophysiologic Disorder: No Hx Substance Use: No - Surgical History Hx Appendectomy: Yes (2006) Hx Cholecystectomy: Yes (1991) Hx Hysterectomy: Yes (2005 Partial) Other/Comment: Left ACL repair. R knee arthroscopy - Anesthesia Hx Anesthesia Reactions: No Hx Malignant Hyperthermia: No - Suicidal Assessment Feels Threatened In Home Enviroment: No Family/Social History - Physician Review Nursing Documentation Reviewed: Yes Family/Social History: Unknown Family HX Smoking Status: Never Smoked Hx Alcohol Use: No Hx Substance Use: No Hx Substance Use Treatment: No Allergies/Home Meds Allergies/Adverse Reactions: Allergies piperacillin [From Zosyn] Allergy (Verified 03/28/18 09:16) RASH tazobactam [From Zosyn] Allergy (Verified 03/28/18 09:16) RASH atorvastatin [From Lipitor] Adverse Reaction (Verified 03/28/18 09:16) PAIN muscle ache pravastatin [From Pravachol] Adverse Reaction (Verified 03/28/18 09:16) PAIN muscle pain rosuvastatin [From Crestor] Adverse Reaction (Verified 03/28/18 09:16) PAIN muscle pain Home Medications: Home Meds Medication Instructions Recorded Confirmed RX: Metoprolol Succinate 25 mg PO DAILY 12/23/12 09/13/17 RX: Ergocalciferol (Vitamin D2) 50,000 iu PO QWK 07/26/13 09/13/17 [Vitamin D2] RX: Tizanidine HCl 4 mg PO DAILY 04/13/14 09/13/17 RX: Albuterol Sulfate [Proventil 1 puff IH DAILY 12/15/16 09/13/17 Hfa] RX: Albuterol/Ipratropium [Duoneb 1 vial IH Q6H PRN 12/15/16 09/13/17 3 mg/0.5 mg (3 ml) UD] RX: Desloratadine [Clarinex] 1 tab PO DAILY 12/15/16 09/13/17 RX: Ezetimibe [Zetia] 1 tab PO DAILY 12/15/16 09/13/17 RX: Fluticasone/Salmeterol 250/50 1 puff IH BID 12/15/16 09/13/17 [Advair Diskus 250/50] RX: Gabapentin Enacarbil [Horizant] 1 cap PO BID 12/15/16 09/13/17 RX: Lidocaine 5% [Lidoderm] 1 patch TOP DAILY 12/15/16 09/13/17 RX: Montelukast [Singulair] 1 tab PO DAILY 12/15/16 09/13/17 RX: Rivaroxaban [Xarelto] 1 tab PO DAILY 12/15/16 09/13/17 Review of Systems - Physician Review All systems were reviewed & negative as marked: Yes - Review of Systems Constitutional: Normal Eyes: Normal ENT: Normal Respiratory: Normal Cardiovascular: Normal Gastrointestinal: Normal Genitourinary Female: Normal Musculoskeletal: Arthralgias (Right shoulder pain) Skin: Normal Neurological: Normal Endocrine: Normal Hemo/Lymphatic: Normal Psychiatric: Normal Physical Exam Vital Signs Reviewed: Yes Vital Signs Temp Pulse Resp BP Pulse Ox 03/28/18 09:15 98.8 F 78 18 129/59 L 97 Temperature: Afebrile Blood Pressure: Normal Pulse: Regular Respiratory Rate: Normal Appearance: Positive for: Well-Appearing, Non-Toxic, Comfortable Pain Distress: None Mental Status: Positive for: Alert and Oriented X 3 - Systems Exam Head: Present: Atraumatic, Normocephalic Pupils: Present: PERRL Extroacular Muscles: Present: EOMI Conjunctiva: Present: Normal Mouth: Present: Moist Mucous Membranes Neck: Present: Normal Range of Motion Respiratory/Chest: Present: Clear to Auscultation, Good Air Exchange. No: Respiratory Distress, Accessory Muscle Use Cardiovascular: Present: Regular Rate and Rhythm, Normal S1, S2. No: Murmurs Abdomen: No: Tenderness, Distention, Peritoneal Signs Back: Present: Normal Inspection Upper Extremity: Present: NORMAL PULSES, Tenderness (Over right proximal shoulder), Neurovascularly Intact. No: Cyanosis, Edema, Normal ROM (Decreased on abduction up to 75degree secondary to pain), Swelling, Deformity Lower Extremity: Present: Normal Inspection. No: Edema Neurological: Present: GCS=15, CN II-XII Intact, Speech Normal Skin: Present: Warm, Dry, Normal Color. No: Rashes Psychiatric: Present: Alert, Oriented x 3, Normal Insight, Normal Concentration Medical Decision Making ED Course and Treatment: 03/28/18 19:25 PT in ED for right shoulder pain. she was NVI and pulse is intact. Right shoulder xray IMPRESSION: No evidence of acute fracture or dislocation. [id number] AC joint arthritic degenerative changes. Result was DW the pt. Arm placed on a sling. Tramadol rx given. Referred to ortho - RAD Interpretation Radiology Orders: 03/28/18 09:23 SHOULDER RIGHT [RAD] Stat Disposition/Present on Arrival - Present on Arrival Any Indicators Present on Arrival: No History of DVT/PE: Yes History of Uncontrolled Diabetes: No Urinary Catheter: No History of Decub. Ulcer: No History Surgical Site Infection Following: None - Disposition Have Diagnosis and Disposition been Completed?: Yes Diagnosis: Shoulder pain Disposition: HOME/ ROUTINE Disposition Time: 11:30 Patient Plan: Discharge Condition: STABLE Additional Instructions: Follow up with your Doctor/Orthopedist Return to ED for any new or worsening symptoms Prescriptions: RX: traMADol [Ultram] 50 mg PO TID #9 tab Referrals: Davion Small MD [Primary Care Provider] - Follow up with primary Forms: [employer] ([place])
--- NOTE | 2018-03-28 10:58 | RAD ---
Date of service: 03/28/2018 PROCEDURE: Radiographs of the Right Shoulder HISTORY: shoulder pain COMPARISON: No prior. FINDINGS: BONES: Normal. No fracture. JOINTS: Normal. Glenohumeral and acromioclavicular joints preserved. Mild osteoarthritis. SOFT TISSUES: Normal. OTHER FINDINGS: None. IMPRESSION: No evidence of acute fracture or dislocation. [id number] AC joint arthritic degenerative changes.
[2018-03-28] MEDS ORDERED: Oxycodone/Acetaminophen 5/325 mg Tab PO STA (11:26)
[2018-03-28 12:22] VITALS: BP 123/60; PULSE 71; TEMP 98
== END 2018-03-28 12:22 | disposition home or self-care (01) ==
LOC: ED 08:58
DX: M25.511 Pain in right shoulder (principal)